=== PATIENT | female | born 1970 | race Caucasian/White ===

== ENCOUNTER 2016-08-13 12:15 | Emergency (ER) | payer OTHER ==
[~2016-08-13] VITALS: Ht 170.2 cm; Wt 77.5 kg
[~2016-08-13 12:15] MED LIST: HYDR10TA16 PO; Z.0.NO CURRENT MEDS
[2016-08-13 12:25] VITALS: BP 175/120; PULSE 81; RESP 16; TEMP 98; O2SAT 97
[2016-08-13] MEDS ORDERED: LORazepam 2 MG/ML VIAL IV PUSH ONE (13:30)
[2016-08-13] MEDS ORDERED: SODIUM CHLORIDE 0.9% FLUSH 10 ML FLUSH IVF PRN (13:30)
[2016-08-13 13:46] VITALS: O2SAT 98
[2016-08-13 13:56] LABS: AUTOMATED NEUTROPHIL # 6.4 TH/MM3 (1.8-7.7); BASOPHIL % 0.3 % (0.0-2.0); EOSINOPHIL # 0.2 TH/MM3 (0-0.4); EOSINOPHIL % 2.4 % (0.0-4.0); HEMATOCRIT 43.7 % (35.0-46.0); HEMO FLAGS DIFF FINAL; LYMPH % 11.7 % (9.0-44.0); LYMPHOCYTE # 0.9 TH/MM3 (1.0-4.8); MEAN CELL VOLUME 90.2 FL (80.0-100.0); MEAN CORPUSCULAR HEMOGLOBIN 30.6 PG (27.0-34.0); MONO % 4.3 % (0.0-8.0); NEUT % 81.3 % (16.0-70.0); PLATELET COUNT 172 TH/MM3 (150-450); RED BLOOD COUNT 4.84 MIL/MM3 (4.00-5.30); RED CELL DISTRIBUTION WIDTH 12.1 % (11.6-17.2); WHITE BLOOD COUNT 7.8 TH/MM3 (4.0-11.0)
[2016-08-13 14:03] LABS: CHLORIDE 106 MEQ/L (98-107); SODIUM (NA) 140 MEQ/L (136-145)
[2016-08-13 14:06] LABS: ANION GAP 9 MEQ/L (5-15); BICARBONATE 24.9 MEQ/L (21.0-32.0); MAGNESIUM 2.1 MG/DL (1.5-2.5)
[2016-08-13 14:07] LABS: BLOOD UREA NITROGEN 8 MG/DL (7-18)
[2016-08-13 14:10] LABS: ALT (GPT) 18 U/L (10-53); AST (GOT) 8 U/L (15-37); GLOMERULAR FILTRATION RATE 101 ML/MIN (>89)
[2016-08-13 14:11] LABS: TOTAL BILIRUBIN ADULT 0.7 MG/DL (0.2-1.0)
--- NOTE | 2016-08-13 14:11 | RADHPO ---
EXAM DATE/TIME: 08/13/2016 13:58 [facility] COMPARISON: No previous studies available for comparison. INDICATIONS : Heart Palpitations MEDICAL HISTORY : Carcinoma, breast. SURGICAL HISTORY : None. ENCOUNTER: Initial ACUITY: 1 week PAIN SCORE: 0/10 LOCATION: Bilateral chest FINDINGS: A single view of the chest demonstrates the lungs to be symmetrically aerated without evidence of mas s, infiltrate or effusion. The cardiomediastinal contours are unremarkable. Osseous structures are intact. CONCLUSION: No acute disease. Abdoul Hickey MD on August 13, 2016 at 14:09 Board Certified Radiologist. This report was verified electronically.
[2016-08-13 14:12] LABS: ALKALINE PHOSPHATASE 81 U/L (45-117)
[2016-08-13 14:17] LABS: CREATINE KINASE 53 U/L (26-192)
[2016-08-13 14:50] VITALS: BP 149/90; PULSE 87; RESP 18; O2SAT 100
--- NOTE | 2016-08-13 14:58 | RADHPO ---
EXAM DATE/TIME: 08/13/2016 14:19 [facility] COMPARISON: No previous studies available for comparison. INDICATIONS : Dizziness, facial and bilateral extremities numbness RADIATION DOSE: 65.17 CTDIvol (mGy) MEDICAL HISTORY : Hypertension. Carcinoma, breast. SURGICAL HISTORY : Mastectomy, bilateral. ENCOUNTER: Initial ACUITY: 1 week PAIN SCALE: 3/10 LOCATION: cranial TECHNIQUE: Multiple contiguous axial images were obtained of the head. Using automated exposure control and adj ustment of the mA and/or kV according to patient size, radiation dose was kept as low as reasonably a chievable to obtain optimal diagnostic quality images. FINDINGS: CEREBRUM: The ventricles are normal for age. No evidence of midline shift, mass lesion, hemorrhage or acute in farction. No extra-axial fluid collections are seen. POSTERIOR FOSSA: The cerebellum and brainstem are intact. The 4th ventricle is midline. The cerebellopontine angle i s unremarkable. EXTRACRANIAL: The visualized portion of the orbits is intact. SKULL: The calvaria is intact. No evidence of skull fracture. CONCLUSION: Normal examination. Abdoul Hickey MD on August 13, 2016 at 14:56 Board Certified Radiologist. This report was verified electronically.
--- NOTE | 2016-08-13 15:03 | PD ---
HPI . Numbness and tingling Chief Complaint: Numbness/Tingling Time Seen by Provider: 13:23 Travel History International Travel<30 days: No Contact w/Intl Traveler<30days: No Traveled to known affect area: No History of Present Illness HPI Patient presents with about a one-week history of numbness and tingling. She states that she has diffuse numbness and tingling. She has been seen by her primary care provider and diagnosed with hypertension. Medications were started. Also has an appointment to see a neurologist tomorrow. She states that she had a very rough night last night so presented to us for treatment today. She states that she had a rough night in that she was unable to sleep due to the diffuse numbness and tingling. She is also complaining with head and neck pain. She has noted no exacerbating factors. Symptoms have been unrelieved by initiation of an antihypertensive. Symptoms have been getting progressively worse. PFSH Past Medical History Blood Disorders: No Cancer: Yes Cardiovascular Problems: Yes (htn on meds recent dx ) Chemotherapy: Yes (02/05) Diminished Hearing: No Endocrine: No Genitourinary: No Immune Disorder: No Musculoskeletal: No Neurologic: No Psychiatric: No Reproductive: Yes (FIBROID) Respiratory: No Radiation Therapy: Yes (06/09) Tetanus Vaccination: < 5 Years Influenza Vaccination: No ?: Not Past Surgical History Abdominal Surgery: Yes (09/22/07--FATTY REPLACEMNT TAKEN FROM [facility], FOR L.BREAST RE RECONSTRUCTION) AICD: No Section: Yes Hysterectomy: Yes Joint Replacement: No Pacemaker: No Thoracic Surgery: Yes (DEC 2006--DOUBLE BREAST MASTECTOMY,CA OF L.BREAST) Other Surgery: Yes (APR 11--BILATERAL BREAST RECONSTRUCTION, 09/22/07-RE RECONSTRUCTION L.BREAST) Social History Alcohol Use: No Tobacco Use: No Substance Use: No Allergies-Medications (Allergen,Severity, Reaction): Coded Allergies: No Known Allergies (Verified , 08/13/16) Reported Meds & Prescriptions Reported Meds & Active Scripts Active No Active Prescriptions or Reported Medications Review of Systems Except as stated in HPI: all other systems reviewed are Neg General / Constitutional: No: Fever, Chills Eyes: No: Blurred Vision HENT: Positive: Headaches, Neck Pain Cardiovascular: No: Chest Pain or Discomfort Respiratory: No: Shortness of Breath Gastrointestinal: No: Nausea, Vomiting, Diarrhea Neurologic: Positive: Headache, Paresthesia Physical Exam Narrative GENERAL: This is a healthy-appearing woman who is in no acute distress. SKIN: Warm and dry. HEAD: Atraumatic. Normocephalic. EYES: Pupils equal and round. Extraocular movements are intact. ENT: No nasal bleeding or discharge. Mucous membranes pink and moist. NECK: Trachea midline. Neck is supple. CARDIOVASCULAR: Regular rate and rhythm. Heart sounds are normal. RESPIRATORY: No accessory muscle use. Lungs are clear with full air movement throughout. GASTROINTESTINAL: Abdomen soft, non-tender, nondistended. MUSCULOSKELETAL: No obvious deformities. No edema. NEUROLOGICAL: Awake and alert. No obvious cranial nerve deficits. Motor grossly within normal limits. Normal speech. Ibzcuo-leqh-sgeevj exam is intact bilaterally PSYCHIATRIC: Appropriate mood and affect; insight and judgment normal. Data Data Last Documented VS Vital Signs Date Time Temp Pulse Resp B/P Pulse Ox O2 Delivery O2 Flow Rate FiO2 08/13/16 14:50 87 18 149/90 100 Room Air 08/13/16 12:25 98.0 Orders Electrocardiogram (08/13/16 13:23) Ed Urine Pregnancytest Poc (08/13/16 13:23) Complete Blood Count With Diff (08/13/16 13:23) Comprehensive Metabolic Panel (08/13/16 13:23) Magnesium (Mg) (08/13/16 13:23) Ckmb (Isoenzyme) Profile (08/13/16 13:23) Troponin I (08/13/16 13:23) Chest, Single Ap (08/13/16 13:23) Ct Brain W/O Iv Contrast(Rout) (08/13/16 13:23) Ecg Monitoring (08/13/16 13:23) Iv Access Insert/Monitor (08/13/16 13:23) Oximetry (08/13/16 13:23) Sodium Chloride 0.9% Flush (Ns Flush) (08/13/16 13:30) Lorazepam Inj (Ativan Inj) (08/13/16 13:30) Labs Laboratory Tests Test 08/13/16 13:45 White Blood Count 7.8 TH/MM3 Red Blood Count 4.84 MIL/MM3 Hemoglobin 14.8 GM/DL Hematocrit 43.7 % Mean Corpuscular Volume 90.2 FL Mean Corpuscular Hemoglobin 30.6 PG Mean Corpuscular Hemoglobin 34.0 % Concent Red Cell Distribution Width 12.1 % Platelet Count 172 TH/MM3 Mean Platelet Volume 6.8 FL Neutrophils (%) (Auto) 81.3 % Lymphocytes (%) (Auto) 11.7 % Monocytes (%) (Auto) 4.3 % Eosinophils (%) (Auto) 2.4 % Basophils (%) (Auto) 0.3 % Neutrophils # (Auto) 6.4 TH/MM3 Lymphocytes # (Auto) 0.9 TH/MM3 Monocytes # (Auto) 0.3 TH/MM3 Eosinophils # (Auto) 0.2 TH/MM3 Basophils # (Auto) 0.0 TH/MM3 CBC Comment DIFF FINAL Differential Comment Sodium Level 140 MEQ/L Potassium Level 4.0 MEQ/L Chloride Level 106 MEQ/L Carbon Dioxide Level 24.9 MEQ/L Anion Gap 9 MEQ/L Blood Urea Nitrogen 8 MG/DL Creatinine 0.63 MG/DL Estimat Glomerular Filtration 101 ML/MIN Rate Random Glucose 87 MG/DL Calcium Level 8.5 MG/DL Magnesium Level 2.1 MG/DL Total Bilirubin 0.7 MG/DL Aspartate Amino Transf 8 U/L (AST/SGOT) Alanine Aminotransferase 18 U/L (ALT/SGPT) Alkaline Phosphatase 81 U/L Total Creatine Kinase 53 U/L Troponin I LESS THAN 0.02 NG/ML Total Protein 7.1 GM/DL Albumin 3.9 GM/DL [facility] Medical Decision Making Medical Screen Exam Complete: Yes Emergency Medical Condition: Yes Interpretation(s) EKG shows a sinus rhythm with no ST segment elevation or depression. She does have LVH area Differential Diagnosis My differential diagnosis of paresthesias includes but is not limited to anxiety , radiculopathy, peripheral neuropathy, peripheral vascular disease, compartment syndrome Narrative Course Patient presents for evaluation of paresthesias which have been present for a week. She has been followed see a neurologist tomorrow. CBC & BMP Diagram 08/13/16 13:45 LFTs are normal. Cardiac enzymes are negative. Last Impressions Chest X-Ray 08/13/16 1323 Signed Impressions: Service Date/Time: Saturday, August 13, 2016 13:58 - CONCLUSION: No acute disease. Abdoul Hickey MD Chest x-ray was independently viewed by me. CT CONCLUSION: Normal examination. No etiology for this patient's paresthesias have been found. Diagnosis Primary Impression: Paresthesias Patient Instructions: General Instructions, Paresthesia (ED) Additional Instructions: Keep your appointment with the neurologist tomorrow Scripts No Active Prescriptions or Reported Meds Disposition: 01 DISCHARGE HOME Condition: Stable Eden Bain MD Aug 13, 2016 15:03
--- NOTE | 2016-08-14 11:48 | EKG ---
Date Performed: 08/13/2016 Time Performed: 13:30:50 PTAGE: 45 years EKG: Sinus rhythm Leftward axis Left ventricular hypertrophy by voltage only Abnormal ECG PREVIOUS TRACING : 01/16/2002 15.05 DOCTOR: Mich Bermudez Interpretating Date/Time 08/14/2016 11:42:43
[2016-08-27] MEDS ORDERED: LISI-519 PO (08:31)
[2016-08-27] MEDS ORDERED: METO25TA3 PO (08:31)
[2016-08-27] MEDS ORDERED: LYRI75CA PO (08:31)
[2016-08-27] MEDS ORDERED: BACT800T5 PO (08:31)
[2016-08-27] MEDS ORDERED: Amitriptyline PO (08:31)
[2016-08-27] MEDS ORDERED: DOCU1CAP39 PO (08:31)
== END 2016-08-13 15:19 | disposition home or self-care (01) ==
LOC: PHED 12:15
DX: R20.9 Unspecified disturbances of skin sensation (principal); I10 Essential (primary) hypertension; R94.31 Abnormal electrocardiogram [ECG] [EKG]
CPT/HCPCS: 70450; 71010; 80053; 82550; 83735; 84484; 84703; 85025; 93005; 96374; 99284; J2060

== ENCOUNTER 2016-08-16 16:09 | Inpatient (IN) | payer OTHER ==
[2016-08-16 16:28] VITALS: BP 169/99; PULSE 88; RESP 20; TEMP 98.6; O2SAT 98
--- NOTE | 2016-08-16 17:02 | PD ---
Physical Exam Time Seen by Provider: 16:56 Narrative 45yo F unable to ambulate. No leg strength. Started 10 days ago with worsening. Seen in [facility] 2-3 days ago and told she had anxiety. Saw neurologist 2 days ago. Has MRI tomorrow of the spine, neck, brain. Hx of breast CA with double mastectomy 10 years ago. Neck and jaw pain. Difficulty swallowing. Denies fever, vomiting. No appetite. VSS. Patient seen in triage. Awaiting bed placement. Data Data Last Documented VS Vital Signs Date Time Temp Pulse Resp B/P Pulse Ox O2 Delivery O2 Flow Rate FiO2 08/16/16 16:28 98.6 88 20 169/99 98 Room Air MDM Supervised Visit with CRISTIN: No Scripts No Active Prescriptions or Reported Meds Renee Wang Aug 16, 2016 17:02
[2016-08-16] MEDS ORDERED: LISI10TA3 PO (22:11)
[2016-08-16] MEDS ORDERED: AMBI10TA PO (22:11)
[2016-08-16] MEDS ORDERED: METO25TA3 PO (22:11)
[2016-08-16] MEDS ORDERED: IBUP800T23 PO (22:11)
[2016-08-16] MEDS ORDERED: SODIUM CHLOR 0.9% 1000 ML INJ 1,000 ML IV SCH (22:34)
[2016-08-16 22:45] VITALS: BP 174/80; PULSE 80; RESP 14; O2SAT 97
--- NOTE | 2016-08-16 22:54 | RADRPT ---
EXAM DATE/TIME: 08/16/2016 22:46 [facility] COMPARISON: CHEST SINGLE AP, August 13, 2016, 13:58. INDICATIONS : Syncope MEDICAL HISTORY : Carcinoma, breast. SURGICAL HISTORY : None. ENCOUNTER: Initial ACUITY: 2 weeks PAIN SCORE: 0/10 LOCATION: Bilateral chest FINDINGS: A single view of the chest demonstrates the lungs to be symmetrically aerated without evidence of mas s, infiltrate or effusion. The cardiomediastinal contours are unremarkable. Osseous structures are intact. Surgical clips are again noted in the left axilla. CONCLUSION: No acute disease. Coy Delatorre MD on August 16, 2016 at 22:52 Board Certified Radiologist. This report was verified electronically.
[2016-08-16 23:24] LABS: AUTOMATED NEUTROPHIL # 4.1 TH/MM3 (1.8-7.7); BASOPHIL % 0.6 % (0.0-2.0); EOSINOPHIL # 0.1 TH/MM3 (0-0.4); EOSINOPHIL % 1.7 % (0.0-4.0); HEMATOCRIT 45.2 % (35.0-46.0); HEMO FLAGS DIFF FINAL; LYMPH % 29.7 % (9.0-44.0); LYMPHOCYTE # 2.1 TH/MM3 (1.0-4.8); MEAN CELL VOLUME 90.1 FL (80.0-100.0); MEAN CORPUSCULAR HEMOGLOBIN 31.8 PG (27.0-34.0); MEAN CORPUSCULAR HGB CONC 35.3 % (32.0-36.0); MONO % 9.3 % (0.0-8.0); NEUT % 58.7 % (16.0-70.0); PLATELET COUNT 205 TH/MM3 (150-450); RED BLOOD COUNT 5.02 MIL/MM3 (4.00-5.30); RED CELL DISTRIBUTION WIDTH 12.7 % (11.6-17.2)
[2016-08-16 23:32] LABS: APTT (PATIENT) 26.1 SEC (24.3-30.1); PROTHROMBIN TIME - PATIENT 10.5 SEC (9.8-11.6)
[2016-08-16 23:41] LABS: BACTERIA, URINE RARE /hpf; BLOOD, URINE MOD (NEG); GLUCOSE,URINE NEG (NEG); HYALINE CAST, URINE 23 /lpf (RARE); KETONE, URINE NEG (NEG); MUCUS URINE MANY /lpf (OCC); NITRITE,URINE NEG (NEG); PH, URINE 5.5 (5.0-8.5); RENAL EPITHELIAL CELLS <1 /hpf; SQUAMOUS EPITHELIAL CELL URINE 3 /hpf (0-5); URINE COLOR YELLOW (YELLW/STRAW)
[2016-08-16 23:43] LABS: COMMENT (UR) CATH-CULTURE IND; CULTURE IF INDICATED CATH CULTURE IND
[2016-08-16 23:45] LABS: ALT (GPT) 18 U/L (10-53); ANION GAP 10 MEQ/L (5-15); AST (GOT) 8 U/L (15-37); BICARBONATE 26.8 MEQ/L (21.0-32.0); BLOOD UREA NITROGEN 11 MG/DL (7-18); CHLORIDE 102 MEQ/L (98-107); GLOMERULAR FILTRATION RATE 99 ML/MIN (>89); POTASSIUM 4.1 MEQ/L (3.5-5.1); SODIUM (NA) 139 MEQ/L (136-145)
[2016-08-16 23:46] LABS: AMPHETAMINE, URINE NEG (NEG); BARBITURATES, URINE NEG (NEG); COCAINE, URINE NEG (NEG)
[2016-08-16 23:56] LABS: ALKALINE PHOSPHATASE 86 U/L (45-117); TOTAL BILIRUBIN ADULT 0.6 MG/DL (0.2-1.0)
[2016-08-17] VITALS (15 sets, daily range): BP systolic 142–173; BP diastolic 79–99; PULSE 75–94; RESP 16–20; TEMP 96.2–98.6; O2SAT 96–99
[2016-08-17] LABS: ACETAMINOPHEN LESS THAN 2.0 MCG/ML (10.0-30.0)
--- NOTE | 2016-08-17 01:16 | PD ---
HPI Chief Complaint: Numbness/Tingling Time Seen by Provider: 22:26 Travel History International Travel<30 days: No Contact w/Intl Traveler<30days: No Traveled to known affect area: No History of Present Illness HPI Patient 45-year-old female presents emergency department for evaluation and numbness and tingling in the lower extremities as well as an inability to emulate. Patient states that the symptoms first started approximately 2 weeks ago and gradually worsening. She states initially started with numbness and tingling in bilateral great toes ultimately coming and having numbness and tingling up her ankles and bilateral hands. She was seen here several days ago and had a CAT scan of her head as well as this question negative and discharged. She is also seen a neurologist Dr. Negron during that time who performed an EMG of her lower extremities which is negative. She's also been tested for Lyme's disease which is still pending. Patient states that for the past 24 hours she's been unable to bear weight in her lower extremity secondary to weakness. She called 911 today to be evaluated. Chest patient been having some trouble swallowing solid food and has been on a liquid diet recently. Denies any fever headaches chest pain shortness breath abdominal pain nausea vomiting diarrhea. PFSH Past Medical History Blood Disorders: No Cancer: Yes (breast) Cardiovascular Problems: Yes (htn on meds recent dx ) Chemotherapy: Yes (02/05) Diminished Hearing: No Endocrine: No Genitourinary: No Immune Disorder: No Musculoskeletal: No Neurologic: No Psychiatric: No Reproductive: Yes (FIBROID) Respiratory: No Radiation Therapy: Yes (06/09) Influenza Vaccination: No ?: Not Past Surgical History Abdominal Surgery: Yes (09/22/07--FATTY REPLACEMNT TAKEN FROM [facility], FOR L.BREAST RE RECONSTRUCTION) AICD: No Section: Yes Hysterectomy: Yes Joint Replacement: No Pacemaker: No Thoracic Surgery: Yes (DEC 2006--DOUBLE BREAST MASTECTOMY,CA OF L.BREAST) Other Surgery: Yes (APR 11--BILATERAL BREAST RECONSTRUCTION, 09/22/07-RE RECONSTRUCTION L.BREAST) Social History Alcohol Use: Yes (occ) Tobacco Use: No Substance Use: No Allergies-Medications (Allergen,Severity, Reaction): Coded Allergies: No Known Allergies (Verified , 08/16/16) Reported Meds & Prescriptions Reported Meds & Active Scripts Active Reported Ibuprofen 800 Mg Tab 800 Mg PO Q6HR PRN Metoprolol Tartrate 25 Mg Tab 25 Mg PO BID Lisinopril 10 Mg Tab 10 Mg PO DAILY Ambien (Zolpidem Tartrate) 10 Mg Tab 10 Mg PO HS PRN Review of Systems Except as stated in HPI: all other systems reviewed are Neg Physical Exam Narrative GENERAL: Well-developed well-nourished no apparent distress. SKIN: Focused skin assessment warm/dry. HEAD: Atraumatic. Normocephalic. EYES: Pupils equal and round. No scleral icterus. No injection or drainage. ENT: No nasal bleeding or discharge. Mucous membranes pink and moist. NECK: Trachea midline. No JVD. CARDIOVASCULAR: Regular rate and rhythm. No murmur appreciated. RESPIRATORY: No accessory muscle use. Clear to auscultation. Breath sounds equal bilaterally. GASTROINTESTINAL: Abdomen soft, non-tender, nondistended. Hepatic and splenic margins not palpable. MUSCULOSKELETAL: No obvious deformities. No clubbing. No cyanosis. No edema. NEUROLOGICAL: Awake and alert. Renal nerves II through XII are grossly intact and nonfocal, 5 out of 5 strength in bilateral upper extremity's, 4-5 strength in plantar flexion of bilateral lower extremities. There is some subjective numbness and tingling of the lower extremity's. DTRs are not able to be elicited patellar site, there is no clonus at the plantar reflex. PSYCHIATRIC: Appropriate mood and affect; insight and judgment normal. Data Data Last Documented VS Vital Signs Date Time Temp Pulse Resp B/P Pulse Ox O2 Delivery O2 Flow Rate FiO2 08/17/16 00:25 78 16 170/84 98 Room Air 08/16/16 16:28 98.6 Orders Electrocardiogram (08/16/16 22:34) Complete Blood Count With Diff (08/16/16 22:34) Comprehensive Metabolic Panel (08/16/16 22:34) Prothrombin Time / Inr (Pt) (08/16/16 22:34) Act Partial Throm Time (Ptt) (08/16/16 22:34) Thyroid Stimulating Hormone (08/16/16 22:34) Urinalysis - C+S If Indicated (08/16/16 22:34) Chest, Single Ap (08/16/16 22:34) Blood Glucose (08/16/16 22:34) Ecg Monitoring (08/16/16 22:34) Iv Access Insert/Monitor (08/16/16 22:34) Oximetry (08/16/16 22:34) Sodium Chloride 0.9% Flush (Ns Flush) (08/16/16 22:45) Sodium Chlor 0.9% 1000 Ml Inj (Ns 1000 M (08/16/16 22:34) Drug Screen, Random Urine (08/16/16 22:34) Alcohol (Ethanol) (08/16/16 22:34) Salicylates (Aspirin) (08/16/16 22:34) Tylenol (Acetaminophen) (08/16/16 22:34) Ed Urine Pregnancytest Poc (08/16/16 22:34) Urine Culture (08/16/16 23:30) Admit Order (Ed Use Only) (08/17/16 ) Labs Laboratory Tests Test 08/16/16 08/16/16 23:10 23:30 White Blood Count 7.0 TH/MM3 Red Blood Count 5.02 MIL/MM3 Hemoglobin 16.0 GM/DL Hematocrit 45.2 % Mean Corpuscular Volume 90.1 FL Mean Corpuscular Hemoglobin 31.8 PG Mean Corpuscular Hemoglobin 35.3 % Concent Red Cell Distribution Width 12.7 % Platelet Count 205 TH/MM3 Mean Platelet Volume 7.1 FL Neutrophils (%) (Auto) 58.7 % Lymphocytes (%) (Auto) 29.7 % Monocytes (%) (Auto) 9.3 % Eosinophils (%) (Auto) 1.7 % Basophils (%) (Auto) 0.6 % Neutrophils # (Auto) 4.1 TH/MM3 Lymphocytes # (Auto) 2.1 TH/MM3 Monocytes # (Auto) 0.7 TH/MM3 Eosinophils # (Auto) 0.1 TH/MM3 Basophils # (Auto) 0.0 TH/MM3 CBC Comment DIFF FINAL Differential Comment Prothrombin Time 10.5 SEC Prothromb Time International 1.0 RATIO Ratio Activated Partial 26.1 SEC Thromboplast Time Salicylates Level LESS THAN 1.7 MG/DL Sodium Level 139 MEQ/L Potassium Level 4.1 MEQ/L Chloride Level 102 MEQ/L Carbon Dioxide Level 26.8 MEQ/L Anion Gap 10 MEQ/L Blood Urea Nitrogen 11 MG/DL Creatinine 0.64 MG/DL Estimat Glomerular Filtration 99 ML/MIN Rate Random Glucose 99 MG/DL Calcium Level 10.5 MG/DL Total Bilirubin 0.6 MG/DL Aspartate Amino Transf 8 U/L (AST/SGOT) Alanine Aminotransferase 18 U/L (ALT/SGPT) Alkaline Phosphatase 86 U/L Total Protein 7.8 GM/DL Albumin 4.1 GM/DL Thyroid Stimulating Hormone 3.060 uIU/ML 3rd Gen Acetaminophen Level LESS THAN 2.0 MCG/ML Ethyl Alcohol Level LESS THAN 3 MG/DL Urine Color YELLOW Urine Turbidity HAZY Urine pH 5.5 Urine Specific Commerce 1.028 Urine Protein TRACE mg/dL Urine Glucose (UA) NEG mg/dL Urine Ketones NEG mg/dL Urine Occult Blood MOD Urine Nitrite NEG Urine Bilirubin NEG Urine Urobilinogen LESS THAN 2.0 MG/DL Urine Leukocyte Esterase NEG Urine RBC 9 /hpf Urine WBC 6 /hpf Urine Squamous Epithelial 3 /hpf Cells Urine Renal Epithelial Cells <1 /hpf Urine Bacteria RARE /hpf Urine Hyaline Casts 23 /lpf Urine Mucus MANY /lpf Microscopic Urinalysis Comment CATH-CULTURE IND Urine Opiates Screen NEG Urine Barbiturates Screen NEG Urine Amphetamines Screen NEG Urine Benzodiazepines Screen NEG Urine Cocaine Screen NEG Urine Cannabinoids Screen NEG MDM Medical Decision Making Medical Screen Exam Complete: Yes Emergency Medical Condition: Yes Differential Diagnosis Neuropathy, Guillain-Olwe, MS, stroke unlikely, electrolyte abnormality. Narrative Course Patient roomed in the emergency department, CT head was reviewed from 3 days ago which was negative. Basic labs including CBC and CMP are negative. After discussing the risks benefits competitions and alternatives patients agreed to proceed with lumbar puncture. Patient discussed with Dr. Eric Orlando for admission to Dr. Rivas. Upon return of the patient's lumbar puncture showing elevated protein concern for Guillain-Lowe remains. She continues to protect her airway at 02 . She was discussed with Dr. Tinajero and O2 30 recommends adding the remainder of the MRI of CT and L-spine. He agrees with MRI of the brain with and without contrast. No indication for IVIG at this time. Consultation is been placed. Patient will be moved age pod and will be under [facility]. Diagnosis Primary Impression: Lower extremity weakness Qualified Code: R29.898 - Weakness of both lower extremities Additional Impression: Inability to bear weight Admitting Information Admitting Physician Requests: Observation Condition: Stable Olvin Rodgers MD Aug 17, 2016 01:16
[2016-08-17 01:55] LABS: GROSS BLOOD TUBE #1 0 (0); GROSS BLOOD TUBE #2 0 (0); SUPERNATE COLOR TUBE #1 CLEAR (CLEAR); SUPERNATE COLOR TUBE #2 CLEAR (CLEAR); VOLUME TUBE # 1 1.1 ML; VOLUME TUBE # 2 1.2 ML
[2016-08-17 01:56] LABS: GROSS BLOOD TUBE #3 0 (0); GROSS BLOOD TUBE #4 0 (0); SUPERNATE COLOR TUBE #3 CLEAR (CLEAR); SUPERNATE COLOR TUBE #4 CLEAR (CLEAR); VOLUME TUBE # 3 1.3 ML; VOLUME TUBE # 4 2.9 ML; WBC TUBE #4 4 /MM3 (0-10)
[2016-08-17 02:22] LABS: CSF LYMPHOCYTES 100 %; CSF NEUTROPHILS 0 %
[2016-08-17] MEDS ORDERED: ONDANSETRON HCL 4 MG/2 ML VIAL IV PUSH ONE (02:30)
[2016-08-17] MEDS ORDERED: LORazepam 1 MG TAB PO SCH (03:45)
[2016-08-17] MEDS ORDERED: CALCIUM CARBONATE 500 MG CHEWABLE TAB PO PRN (03:45)
--- NOTE | 2016-08-17 06:16 | RADRPT ---
EXAM DATE/TIME: 08/17/2016 04:47 [facility] COMPARISON: No previous studies available for comparison. INDICATIONS : Inability to ambulate. CONTRAST: 15 cc Omniscan (gadodiamide) IV MEDICAL HISTORY : Hypertension. Carcinoma, breast. SURGICAL HISTORY : Mastectomy, bilateral. Hysterectomy. Breast implants. ENCOUNTER: Initial ACUITY: 4-6 days PAIN SCORE: 0/10 LOCATION: [facility] TECHNIQUE: Multiplanar multisequence MRI of the thoracic spine was performed. FINDINGS: VERTEBRA: Normal vertebral body height. Homogeneous marrow signal. Mild primarily bony degenerative changes ar e seen involving the thoracic spine. No compression fractures are demonstrated. ALIGNMENT: Normal. CORD: Normal position and configuration. POST CONTRAST: No abnormal areas of contrast enhancement seen. T1-T2: Normal. T2-T3: The thecal sac has a normal diameter. No evidence of disc bulge or protrusion. T3-T4: The thecal sac has a normal diameter. No evidence of disc bulge or protrusion. T4-T5: The thecal sac has a normal diameter. No evidence of disc bulge or protrusion. T5-T6: The thecal sac has a normal diameter. No evidence of disc bulge or protrusion. T6-T7: The thecal sac has a normal diameter. No evidence of disc bulge or protrusion. T7-T8: The thecal sac has a normal diameter. No evidence of disc bulge or protrusion. T8-T9: The thecal sac has a normal diameter. No evidence of disc bulge or protrusion. T9-T10: Focal right paracentral bulging. Foramina are patent. T10-T11: The thecal sac has a normal diameter. No evidence of disc bulge or protrusion. T11-T12: The thecal sac has a normal diameter. No evidence of disc bulge or protrusion. T12-L1: The thecal sac has a normal diameter. No evidence of disc bulge or protrusion. CONCLUSION: 1. Focal right paracentral bulging at T9-T10. 2. Mild primarily bony degenerative changes of the thoracic spine. Catrachito Leal MD on August 17, 2016 at 6:11 Board Certified Radiologist. This report was verified electronically.
[2016-08-17] MEDS ORDERED: GADODIAMIDE PF 287 MG/ML 5 ML VIAL (for RAD MRI) IV ONE (06:30)
--- NOTE | 2016-08-17 06:46 | RADRPT ---
EXAM DATE/TIME: 08/17/2016 04:47 [facility] COMPARISON: No previous studies available for comparison. INDICATIONS : Inability to ambulate. CONTRAST: 15 cc Omniscan (gadodiamide) IV MEDICAL HISTORY : Hypertension. Carcinoma, breast. SURGICAL HISTORY : Mastectomy, bilateral. Hysterectomy. Breast implant. ENCOUNTER: Initial ACUITY: 4-6 days PAIN SCORE: 0/10 LOCATION: [facility] TECHNIQUE: Multiplanar, multisequence MRI examination of the cervical spine was performed. FINDINGS: VERTEBRAE: Normal vertebral body height. Homogeneous marrow signal. There are primary bony degenerative change is present. There is disc space narrowing at C4-5 and C5-6. No compression fractures are demonstrated . ALIGNMENT: No evidence of subluxation. CORD: Normal configuration and signal. POST FOSSA: The cerebellar tonsils are normal in position. POST-CONTRAST: No abnormal areas of enhancement are seen. C2-C3: The thecal sac has a normal configuration. There is no evidence of disc herniation or spinal canal stenosis. The neural foramina are patent bilaterally. C3-C4: The thecal sac has a normal configuration. There is no evidence of disc herniation or spinal canal s tenosis. The neural foramina are patent bilaterally. C4-C5: Moderate diffuse broad-based bulging with mild narrowing of the neural foramina bilaterally. This cau sing some mild to moderate spinal canal stenosis. C5-C6: There is broad-based bulging and left lateral bulging/protrusion. There is mild narrowing of the neur al foramina bilaterally, left greater than right.. C6-C7: Mild broad-based bulging. The neural foramina appear patent. C7-T1: The thecal sac has a normal configuration. There is no evidence of disc herniation or spinal canal s tenosis. The neural foramina are patent bilaterally. CONCLUSION: 1. There is broad-based bulging and left lateral bulging/protrusion at C5-6. 2. Moderate diffuse broad-based bulging at C4-5. 3. Mild broad-based bulging at C6-7 4. Primary bony degenerative changes of the cervical spine with disc space narrowing at C4-5 and C5-6 . Catrachito Leal MD on August 17, 2016 at 6:39 Board Certified Radiologist. This report was verified electronically.
--- NOTE | 2016-08-17 06:49 | RADRPT ---
EXAM DATE/TIME: 08/17/2016 04:47 [facility] COMPARISON: No previous studies available for comparison. INDICATIONS : Inability to ambulate. CONTRAST: 15 cc Omniscan (gadodiamide) IV MEDICAL HISTORY : Carcinoma, breast. Hypertension. SURGICAL HISTORY : Mastectomy, bilateral. Hysterectomy. Breast implants ENCOUNTER: Initial ACUITY: 4-6 days PAIN SCORE: 0/10 LOCATION: Paraspinal TECHNIQUE: Multiplanar multisequence MRI of the lumbar spine was performed with and without contrast. FINDINGS: The most caudal appearing lumbar vertebra is numbered as L5. VERTEBRAE: Homogeneous signal. Normal alignment. There is disc dehydration L5-S1. There is a hemangioma in the body of L2. CONUS: Normal level and configuration. POST CONTRAST: No abnormal areas of contrast enhancement are seen. T12-L1: The thecal sac has a normal diameter. No evidence of disc bulge or protrusion. The neural foramina are patent bilaterally. L1-L2: The thecal sac has a normal diameter. No evidence of disc bulge or protrusion. The neural foramina are patent bilaterally. L2-L3: The thecal sac has a normal diameter. No evidence of disc bulge or protrusion. The neural foramina are patent bilaterally. Bilateral facet arthritis. L3-L4: Focal mild central bulging. The neural foramina are patent bilaterally. Bilateral facet arthritis. L4-L5: The thecal sac has a normal diameter. No evidence of disc bulge or protrusion. The neural foramina are patent bilaterally. Bilateral facet arthritis. L5-S1: The thecal sac has a normal diameter. No evidence of disc bulge or protrusion. The neural foramina are patent bilaterally. Bilateral facet arthritis. CONCLUSION: 1. Focal mild central bulging L3-4. 2. Disc dehydration with disc space narrowing at L5-S1 3. Bilateral facet arthritis at multiple levels. Catrachito Leal MD on August 17, 2016 at 6:44 Board Certified Radiologist. This report was verified electronically.
--- NOTE | 2016-08-17 06:51 | RADRPT ---
EXAM DATE/TIME: 08/17/2016 04:47 [facility] COMPARISON: No previous studies available for comparison. INDICATIONS : Inability to ambulate. Cephalgia. CONTRAST: 15 cc Omniscan (gadodiamide) IV MEDICAL HISTORY : Inability to ambulate SURGICAL HISTORY : Mastectomy, bilateral. Hysterectomy. Breast implants. ENCOUNTER: Initial ACUITY: 4-6 days PAIN SCORE: 5/10 LOCATION: cranial TECHNIQUE: Multiplanar, multisequence MRI of the brain was performed both prior to and following the administrat ion of paramagnetic contrast. FINDINGS: CEREBRUM: The ventricles are normal for age. No evidence of midline shift, mass lesion, hemorrhage or acute in farction. No extraaxial fluid collections are seen. The pituitary gland and suprasellar cistern are normal in configuration. WHITE MATTER: No significant signal abnormalities are seen in the white matter. A few tiny high signal spots are se en in the white matter tracks bilaterally most likely representing some ischemic demyelinization. POSTERIOR FOSSA: The cerebellum and brainstem are intact. The 4th ventricle is midline. The cerebellopontine angle is unremarkable. The cerebellar tonsils are normal in position. DIFFUSION IMAGING: No focal areas of restricted diffusion are seen. No evidence of acute infarction. EXTRACRANIAL: The visualized portions of the orbits are unremarkable. There is chronic sinus disease in the ethmoid and maxillary sinuses bilaterally. POST-CONTRAST: No abnormal areas of parenchymal or dural enhancement. No evidence of blood-brain barrier breakdown. CONCLUSION: 1. A few tiny high signal spots are seen in the white matter tracks bilaterally suggestive of some is chemic demyelinization. 2. Otherwise, unremarkable MRI of the brain. Catrachito Leal MD on August 17, 2016 at 6:47 Board Certified Radiologist. This report was verified electronically.
[2016-08-17] MEDS: METOPROLOL TARTRATE 25 MG TAB PO SCH ×2 (08:11→20:26)
[2016-08-17] MEDS: PANTOPRAZOLE SOD 20 MG DELAYED RELEASE TAB PO SCH (08:11)
[2016-08-17] MEDS: SODIUM CHLORIDE 0.9% FLUSH 10 ML FLUSH IVF PRN (08:12)
--- NOTE | 2016-08-17 08:57 | PD.CONS ---
History of Present Illness Service Neurology Consult Requested By er Reason for Consult weakness Primary Care Physician rEic Orlando MD History of Present Illness 45-year-old previously healthy female presents emergency department for evaluation and numbness and tingling in the lower extremities as well as an inability to ambulate. hx of breast cancer in remission. is active at baseline. onset: over 10 days ago. preceded by gi symptoms/?viral gastroenteritis 1 week prior Patient states that the symptoms first started approximately 2 weeks ago and gradually worsening. She states initially started with numbness and tingling in bilateral great toes ultimately coming and having numbness and tingling up her ankles up to her knees and now involvement of her hands. her neck hurts and she has paresthesias in her hands and feet. no vision loss, no ptosis. no diplopia, no dysphagia. no dyspnea. no vaccinations. She was seen here several days ago and had a CAT scan of her head as well as this question negative and discharged from er 08/13. Her pcp sent her to Dr. Jim a neurologist, who sent her to , a neurologist for EMG testing which was reportedly negative. She's also been tested for Lyme's disease which is still pending. Patient states that for the past 24 hours she's been unable to bear weight in her lower extremity secondary to weakness. Denies any fever headaches chest pain shortness breath abdominal pain nausea vomiting diarrhea. PFSH Past Medical History Blood Disorders: No Cancer: Yes (breast) Cardiovascular Problems: Yes (htn on meds recent dx ) Chemotherapy: Yes (02/05) Diminished Hearing: No Endocrine: No Genitourinary: No Immune Disorder: No Musculoskeletal: No Neurologic: No Psychiatric: No Reproductive: Yes (FIBROID) Respiratory: No Radiation Therapy: Yes (06/09) Influenza Vaccination: No ?: Not Past Surgical History Abdominal Surgery: Yes (09/22/07--FATTY REPLACEMNT TAKEN FROM ABD, FOR L.BREAST RE RECONSTRUCTION) AICD: No Section: Yes Hysterectomy: Yes Joint Replacement: No Pacemaker: No Thoracic Surgery: Yes (DEC 2006--DOUBLE BREAST MASTECTOMY,CA OF L.BREAST) Other Surgery: Yes (APR 11--BILATERAL BREAST RECONSTRUCTION, 09/22/07-RE RECONSTRUCTION L.BREAST) Social History Alcohol Use: Yes (occ) Tobacco Use: No Substance Use: No Allergies-Medications (Allergen,Severity, Reaction): Coded Allergies: No Known Allergies (Verified , 08/16/16) Reported Meds & Prescriptions Reported Meds & Active Scripts Active Reported Ibuprofen 800 Mg Tab 800 Mg PO Q6HR PRN Metoprolol Tartrate 25 Mg Tab 25 Mg PO BID Lisinopril 10 Mg Tab 10 Mg PO DAILY Ambien (Zolpidem Tartrate) 10 Mg Tab 10 Mg PO HS PRN Review of Systems Except as stated in HPI: all other systems reviewed are Neg Review of Systems All other ROS: ROS reviewed as documented in chart Past Family Social History Allergies: Coded Allergies: No Known Allergies (Verified , 08/16/16) Active Ordered Medications Current Medications Medications (Trade) Dose Ordered Sig/Levy Route Start Time Stop Time Status Last Admin (NS Flush) 2 ml UNSCH PRN IVF 08/16/16 22:45 08/17/16 08:12 (Lopressor) 25 mg Q12HR PO 08/17/16 09:00 08/17/16 08:11 (Prinivil) 5 mg DAILY PO 08/17/16 09:00 08/17/16 08:13 (Protonix) 20 mg DAILY PO 08/17/16 09:00 08/17/16 08:11 (Tums Chew) 1,000 mg Q6H PRN PO 08/17/16 03:45 08/17/16 04:05 Family History daughter with CIDP, age 11, gets ivig tx's Exam I&O / VS Vital Signs Date Time Temp Pulse Resp B/P Pulse Ox O2 Delivery O2 Flow Rate FiO2 08/17/16 07:57 97.8 84 18 171/88 97 08/17/16 04:22 98.6 90 20 169/93 98 08/17/16 03:01 97.0 88 20 158/92 97 08/17/16 01:39 82 16 164/88 99 Room Air 08/17/16 00:25 78 16 170/84 98 Room Air 08/16/16 22:45 80 14 174/80 97 Room Air 08/16/16 21:59 88 14 97 Room Air 08/16/16 16:28 98.6 88 20 169/99 98 Room Air General: Alert and Oriented, No acute distress Eye: EOMI Respiratory: Non-labored respirations Cardiology: Normal rate Neurologic: Alert, Oriented, CN II-XII intact Psychiatric: Cooperative, Appropriate mood & affect, Normal judgement, Non- suicidal Exam Comments ox 3, pleasant. eomi, face sym, ou 3-2, no ptosis, mild neck rigidity, generalized weakness 3-4/5 prox>distal, able to briefly raise legs to gravity, arms for a few seconds, able to paper twister marquise 4+/5, wrist ext 4+5, foot dorsiflexion 4/5, msr trace, no clonus, planter flexor, allodynia/mild hyperpathia in distal dital legs/arms Review/Management Diagnosis/Plan: (1) Guillain Lowe syndrome Plan: probable gbs ascending weakness, hyporeflexic, stocking glove paresthesias with antecedent viral gastroenteritis +elevated protein with nml wbc and chemistries mri brain- minimal, non-significant white matter spots spinal cord normal interestingly, daughter with CIDP and receives ivig; pt and daughter may have genetic/immune etiology recs ivig x 5 days; s/b d/w pt. pt would like to proceed p.t. 5th floor with tele gabapentin for paresthesias rehab md for repeat emg/ncv follow exam (2) Lower extremity weakness (3) Paresthesias Problem Qualifiers (1) Lower extremity weakness: Qualified Code: R29.898 - Weakness of both lower extremities Franck Lee MD Aug 17, 2016 08:56
[2016-08-17] MEDS ORDERED: LISINOPRIL 5 MG TAB PO SCH (09:00)
[2016-08-17] MEDS ORDERED: diphenhydrAMINE HCL 25 MG CAP PO SCH (09:00)
[2016-08-17] MEDS ORDERED: ACETAMINOPHEN 325 MG TAB PO SCH ×2 (09:00→10:00)
[2016-08-17] MEDS: SODIUM CHLOR 0.9% 1000 ML INJ 1,000 ML IV SCH ×2 (09:15→23:50)
--- NOTE | 2016-08-17 09:41 | EKG ---
Date Performed: 08/16/2016 Time Performed: 23:53:51 PTAGE: 45 years EKG: Sinus rhythm BORDERLINE LEFT AXIS DEVIATION VOLTAGE CRITERIA FOR LVH ABNORMAL ECG PREVIOUS TRACING : 08/13/2016 13.30 No significant change from previous tracing noted. DOCTOR: Quinton Powell Interpretating Date/Time 08/17/2016 09:40:25
[2016-08-17] MEDS ORDERED: diphenhydrAMINE HCL 50 MG/ML VIAL IV PUSH PRN (10:00)
[2016-08-17] MEDS ORDERED: EPINEPHrine HCL (1:1000) 1 MG/ML VIAL OTHER PRN (10:00)
[2016-08-17] MEDS: DEXTROSE 5% IN WATE 500 ML INJ 500 ML OTHER SCH (10:15)
[2016-08-17] MEDS: SODIUM CHLORID 0.9% 500 ML INJ 500 ML IV SCH (11:37)
[2016-08-17] MEDS: diphenhydrAMINE HCL 25 MG CAP PO SCH (11:37)
[2016-08-17] MEDS: GABAPENTIN 100 MG CAP PO SCH ×3 (11:38→18:27)
[2016-08-17] MEDS: HEPARIN SODIUM - SQ 10,000 UNITS/ML VIAL SQ SCH ×2 (11:39→20:28)
[2016-08-17 12:00] LABS: INDIRECT BILIRUBIN 0.6 MG/DL (0.0-0.8); TOTAL BILIRUBIN ADULT 0.7 MG/DL (0.2-1.0)
[2016-08-17] MEDS: IMMUNE GLOBULIN INJ 30 GM in SYRINGE/BAG 1 EA IV SCH (13:00)
--- NOTE | 2016-08-17 15:08 | HHI.HP ---
HPI Service [facility] Hospitalists Primary Care Physician Eric Orlando MD Admission Diagnosis Weakness, Inability to ambulate Chief Complaint: LE numbness Travel History International Travel<30 Days: No Contact w/Intl Traveler <30 Da: No Traveled to Known Affected Are: No History of Present Illness Patient is a pleasant 45-year-old female with history of breast cancer now in remission. Patient presented to [facility] with complaint of numbness and tingling in her lower extremities as well as inability to ambulate. The symptoms have worsened over the last 10 days. Initially patient had numbness and tingling bilaterally in her great toes. This numbness progressed to go up to the level of her ankles and then knees. Patient now complains of numbness and tingling also at her hands. Patient denies vision loss no dysphasia no difficulty with word finding. Patient reportedly had outpatient EMG testing which was negative. Patient has been tested for Lyme's disease which is pending. Present symptoms were preceded by Astra enteritis. Review of Systems Constitutional: DENIES: Diaphoretic episodes, Fatigue, Fever, Weight gain, Weight loss, Chills, Dizziness, Change in appetite, Night Sweats Endocrine: DENIES: Heat/cold intolerance, Polydipsia, Polyuria, Polyphagia Eyes: DENIES: Blurred vision, Diplopia, Eye inflammation, Eye pain, Vision loss , Photosensitivity, Double Vision Ears, nose, mouth, throat: DENIES: Tinnitus, Hearing loss, Vertigo, Nasal discharge, Oral lesions, Throat pain, Hoarseness, Ear Pain, Running Nose, Epistaxis, Sinus Pain, Toothache, Odynophagia Respiratory: DENIES: Apneas, Cough, Snoring, Wheezing, Hemoptysis, Sputum production, Shortness of breath Cardiovascular: DENIES: Chest pain, Palpitations, Syncope, Dyspnea on Exertion , PND, Lower Extremity Edema, Orthopnea, Claudication Gastrointestinal: DENIES: Abdominal pain, Black stools, Bloody stools, BRB per rectum, Constipation, Diarrhea, GERD, Nausea, Reflux, Vomiting, Difficulty Swallowing, Anorexia Genitourinary: DENIES: Urinary frequency, Urinary incontinence, Urgency, Hematuria, Dysuria, Nocturia Musculoskeletal: DENIES: Joint pain, Muscle aches, Stiffness, Joint Swelling, Back pain, Neck pain Integumentary: DENIES: Abnormal pigmentation, Pruritus, Rash, Nail changes, Breast masses, Breast skin changes, Nipple discharge Hematologic/lymphatic: DENIES: Bruising, Lymphadenopathy Immunologic/allergic: DENIES: Eczema, Urticaria Neurologic: COMPLAINS OF: Abnormal gait, Localized weakness, Paresthesias, DENIES: Headache, Seizures, Speech Problems, Tremor, Poor Balance Psychiatric: DENIES: Anxiety, Confusion, Mood changes, Depression, Hallucinations, Agitation, Suicidal Ideation, Homicidal Ideation, Delusions, History of Bipolar, History of Schizophrenia Past Family Social History Past Medical History 1) history of breast cancer, left breast - Status post chemotherapy and radiation therapy 2) hypertension 3) Past Surgical History 1) double mastectomy, December 2006 for cancer of left breast 2) bilateral breast reconstruction, September 2007 Reported Medications Reported Meds & Active Scripts Active Reported Ibuprofen 800 Mg Tab 800 Mg PO Q6HR PRN Metoprolol Tartrate 25 Mg Tab 25 Mg PO BID Lisinopril 10 Mg Tab 10 Mg PO DAILY Ambien (Zolpidem Tartrate) 10 Mg Tab 10 Mg PO HS PRN Allergies: Coded Allergies: No Known Allergies (Verified , 08/16/16) Family History Noncontributory Social History - No tobacco use - Rare alcoholic beverage - No illicit street drugs Physical Exam Vital Signs Vital Signs Date Time Temp Pulse Resp B/P Pulse Ox O2 Delivery O2 Flow Rate FiO2 08/17/16 14:26 97.5 94 16 171/85 96 08/17/16 13:53 98.6 85 16 171/99 97 08/17/16 13:21 96.2 79 18 173/91 97 08/17/16 13:08 170/80 97 08/17/16 12:00 98.2 81 18 169/99 97 08/17/16 08:00 75 08/17/16 07:57 97.8 84 18 171/88 97 08/17/16 04:22 98.6 90 20 169/93 98 08/17/16 03:01 97.0 88 20 158/92 97 08/17/16 01:39 82 16 164/88 99 Room Air 08/17/16 00:25 78 16 170/84 98 Room Air 08/16/16 22:45 80 14 174/80 97 Room Air 08/16/16 21:59 88 14 97 Room Air 08/16/16 16:28 98.6 88 20 169/99 98 Room Air Physical Exam GENERAL: This is a well-nourished, well-developed patient, in no apparent distress. SKIN: No rashes, ecchymoses or lesions. Cool and dry. HEAD: Atraumatic. Normocephalic. No temporal or scalp tenderness. EYES: Pupils equal round and reactive. Extraocular motions intact. No scleral icterus. No injection or drainage. ENT: Nose without bleeding, purulent drainage or septal hematoma. Throat without erythema, tonsillar hypertrophy or exudate. Uvula midline. Airway patent. NECK: Trachea midline. No JVD or lymphadenopathy. Supple, nontender, no meningeal signs. CARDIOVASCULAR: Regular rate and rhythm without murmurs, gallops, or rubs. RESPIRATORY: Clear to auscultation. Breath sounds equal bilaterally. No wheezes , rales, or rhonchi. GASTROINTESTINAL: Abdomen soft, non-tender, nondistended. No hepato-splenomegaly , or palpable masses. No guarding. MUSCULOSKELETAL: Extremities without clubbing, cyanosis, or edema. No joint tenderness, effusion, or edema noted. No calf tenderness. Negative Homans sign bilaterally. NEUROLOGICAL: Awake and alert. Cranial nerves II through XII intact. Motor and sensory grossly within normal limits. Five out of 5 muscle strength in all muscle groups. Normal speech. Laboratory Laboratory Tests Test 08/16/16 08/16/16 08/17/16 08/17/16 23:10 23:30 01:00 10:56 White Blood Count 7.0 Red Blood Count 5.02 Hemoglobin 16.0 Hematocrit 45.2 Mean Corpuscular Volume 90.1 Mean Corpuscular Hemoglobin 31.8 Mean Corpuscular Hemoglobin 35.3 Concent Red Cell Distribution Width 12.7 Platelet Count 205 Mean Platelet Volume 7.1 Neutrophils (%) (Auto) 58.7 Lymphocytes (%) (Auto) 29.7 Monocytes (%) (Auto) 9.3 Eosinophils (%) (Auto) 1.7 Basophils (%) (Auto) 0.6 Neutrophils # (Auto) 4.1 Lymphocytes # (Auto) 2.1 Monocytes # (Auto) 0.7 Eosinophils # (Auto) 0.1 Basophils # (Auto) 0.0 CBC Comment DIFF FINAL Differential Comment Prothrombin Time 10.5 Prothromb Time International 1.0 Ratio Activated Partial 26.1 Thromboplast Time Salicylates Level LESS THAN 1.7 Sodium Level 139 Potassium Level 4.1 Chloride Level 102 Carbon Dioxide Level 26.8 Anion Gap 10 Blood Urea Nitrogen 11 Creatinine 0.64 Estimat Glomerular Filtration 99 Rate Random Glucose 99 Calcium Level 10.5 Total Bilirubin 0.6 0.7 Aspartate Amino Transf 8 6 (AST/SGOT) Alanine Aminotransferase 18 16 (ALT/SGPT) Alkaline Phosphatase 86 79 Total Protein 7.8 7.3 Albumin 4.1 3.8 Thyroid Stimulating Hormone 3.060 3rd Gen Acetaminophen Level LESS THAN 2.0 Ethyl Alcohol Level LESS THAN 3 Urine Color YELLOW Urine Turbidity HAZY Urine pH 5.5 Urine Specific [place] 1.028 Urine Protein TRACE Urine Glucose (UA) NEG Urine Ketones NEG Urine Occult Blood MOD Urine Nitrite NEG Urine Bilirubin NEG Urine Urobilinogen LESS THAN 2.0 Urine Leukocyte Esterase NEG Urine RBC 9 Urine WBC 6 Urine Squamous Epithelial 3 Cells Urine Renal Epithelial Cells <1 Urine Bacteria RARE Urine Hyaline Casts 23 Urine Mucus MANY Microscopic Urinalysis Comment CATH-CULTURE IND Urine Opiates Screen NEG Urine Barbiturates Screen NEG Urine Amphetamines Screen NEG Urine Benzodiazepines Screen NEG Urine Cocaine Screen NEG Urine Cannabinoids Screen NEG CSF Volume (Tube 1) 1.1 CSF Supernatant Color (tube 1) CLEAR CSF Gross Blood (Tube 1) 0 CSF Volume (Tube 2) 1.2 CSF Supernatant Color (tube 2) CLEAR CSF Gross Blood (Tube 2) 0 CSF Volume (Tube 3) 1.3 CSF Supernatant Color (tube 3) CLEAR CSF Gross Blood (Tube 3) 0 CSF Volume (Tube 4) 2.9 CSF Supernatant Color (tube 4) CLEAR CSF Gross Blood (Tube 4) 0 CSF WBC (Tube 4) 4 CSF RBC (Tube 4) 0 CSF Neutrophils 0 CSF Lymphocytes 100 CSF Glucose 59 CSF Total Protein 90.9 Erythrocyte Sedimentation Rate 9 Direct Bilirubin 0.1 Indirect Bilirubin 0.6 Total Creatine Kinase 69 Vitamin B12 Level 576 Hepatitis A IgM Antibody NEGATIVE Hepatitis B Surface Antigen NEGATIVE Hepatitis B Core IgM Antibody NEGATIVE Hepatitis C Antibody NEGATIVE HIV (1&2) Antibody NEGATIVE Date/Time Procedure Status Source Growth 08/17/16 01:00 Gram Stain - Final Resulted Cerebral Spinal Fluid Lumbar Puncture 08/17/16 01:00 CSF Culture Resulted Cerebral Spinal Fluid Lumbar Puncture Pending 08/16/16 23:30 Urine Culture - Preliminary Resulted Urine Clean Catch RESULTS PENDING Result Diagram: 08/16/16 2310 08/16/16 2310 Imaging Last Impressions Brain MRI 08/17/16 0248 Signed Impressions: Service Date/Time: Wednesday, August 17, 2016 04:47 - CONCLUSION: 1. A few tiny high signal spots are seen in the white matter tracks bilaterally suggestive of some ischemic demyelinization. 2. Otherwise, unremarkable MRI of the brain. Catrachito Leal MD Thoracic Spine MRI 08/17/16 0000 Signed Impressions: Service Date/Time: Wednesday, August 17, 2016 04:47 - CONCLUSION: 1. Focal right paracentral bulging at T9-T10. 2. Mild primarily bony degenerative changes of the thoracic spine. Catrachito Leal MD Lumbar Spine MRI 08/17/16 0000 Signed Impressions: Service Date/Time: Wednesday, August 17, 2016 04:47 - CONCLUSION: 1. Focal mild central bulging L3-4. 2. Disc dehydration with disc space narrowing at L5-S1 3. Bilateral facet arthritis at multiple levels. Catrachito Leal MD Cervical Spine MRI 08/17/16 0000 Signed Impressions: Service Date/Time: Wednesday, August 17, 2016 04:47 - CONCLUSION: 1. There is broad-based bulging and left lateral bulging/protrusion at C5-6. 2. Moderate diffuse broad-based bulging at C4-5. 3. Mild broad-based bulging at C6-7 4. Primary bony degenerative changes of the cervical spine with disc space narrowing at C4-5 and C5-6. Catrachito Leal MD Chest X-Ray 08/16/16 2234 Signed Impressions: Service Date/Time: August 22:46 - CONCLUSION: No acute disease. Coy Delatorre MD Septic Shock Reassessment Heart: Regular rate and rhythm Lungs: Clear Skin: Warm Peripheral Pulses: Bounding Right Radial Bounding Left Radial Bounding Right Popliteal Bounding Left Popliteal Bounding Right Dorsalis Pedis Bounding Left Dorsalis Pedis Bounding Right Posterior Tibial Bounding Left Posterior Tibial Capillary Refill: Brisk Assessment and Plan Problem List: (1) Guillain Lowe syndrome Status: Acute Plan: - Ascending weakness - Hyporeflexia - Stocking-glove paresthesias - antecedentl spiral gastroenteritis - Imaging studies do NOT indicate likely acute infarction infarction - IVIG x 5 days - PT - gabapentin (2) HTN (hypertension) Status: Acute Plan: - metoprolol - increase lisinopril to 20mg BID - prn catapress, prn IV vasotec Physician Certification 2 Midnight Certification Type: Admission for Inpatient Services Order for Inpatient Services The services are ordered in accordance with Medicare regulations or non- Medicare payer requirements, as applicable. In the case of services not specified as inpatient-only, they are appropriately provided as inpatient services in accordance with the 2-midnight benchmark. Estimated LOS (days): 3 3 days is the estimated time the patient will need to remain in the hospital, assuming treatment plan goals are met and no additional complications. Post-Hospital Plan: Not yet determined Problem Qualifiers (1) HTN (hypertension): Qualified Code: I10 - Essential hypertension Werner Rivas DO Aug 17, 2016 15:08
[2016-08-17] MEDS ORDERED: ENALAPRILAT 1.25 MG/ML VIAL IV PRN (15:15)
[2016-08-17] MEDS: cloNIDine HCL 0.2 MG TAB PO PRN (15:18)
--- NOTE | 2016-08-17 16:15 | PD ---
Physical Exam Date Seen by Provider: Aug 17, 2016 Time Seen by Provider: 01:00 Data Data Last Documented VS Vital Signs Date Time Temp Pulse Resp B/P Pulse Ox O2 Delivery O2 Flow Rate FiO2 08/17/16 00:25 78 16 170/84 98 Room Air 08/16/16 16:28 98.6 Orders Electrocardiogram (08/16/16 22:34) Complete Blood Count With Diff (08/16/16 22:34) Comprehensive Metabolic Panel (08/16/16 22:34) Prothrombin Time / Inr (Pt) (08/16/16 22:34) Act Partial Throm Time (Ptt) (08/16/16 22:34) Thyroid Stimulating Hormone (08/16/16 22:34) Urinalysis - C+S If Indicated (08/16/16 22:34) Chest, Single Ap (08/16/16 22:34) Blood Glucose (08/16/16 22:34) Ecg Monitoring (08/16/16 22:34) Iv Access Insert/Monitor (08/16/16 22:34) Oximetry (08/16/16 22:34) Sodium Chloride 0.9% Flush (Ns Flush) (08/16/16 22:45) Sodium Chlor 0.9% 1000 Ml Inj (Ns 1000 M (08/16/16 22:34) Drug Screen, Random Urine (08/16/16 22:34) Alcohol (Ethanol) (08/16/16 22:34) Salicylates (Aspirin) (08/16/16 22:34) Tylenol (Acetaminophen) (08/16/16 22:34) Ed Urine Pregnancytest Poc (08/16/16 22:34) Urine Culture (08/16/16 23:30) Admit Order (Ed Use Only) (08/17/16 ) Labs Laboratory Tests Test 08/16/16 08/16/16 23:10 23:30 White Blood Count 7.0 TH/MM3 Red Blood Count 5.02 MIL/MM3 Hemoglobin 16.0 GM/DL Hematocrit 45.2 % Mean Corpuscular Volume 90.1 FL Mean Corpuscular Hemoglobin 31.8 PG Mean Corpuscular Hemoglobin 35.3 % Concent Red Cell Distribution Width 12.7 % Platelet Count 205 TH/MM3 Mean Platelet Volume 7.1 FL Neutrophils (%) (Auto) 58.7 % Lymphocytes (%) (Auto) 29.7 % Monocytes (%) (Auto) 9.3 % Eosinophils (%) (Auto) 1.7 % Basophils (%) (Auto) 0.6 % Neutrophils # (Auto) 4.1 TH/MM3 Lymphocytes # (Auto) 2.1 TH/MM3 Monocytes # (Auto) 0.7 TH/MM3 Eosinophils # (Auto) 0.1 TH/MM3 Basophils # (Auto) 0.0 TH/MM3 CBC Comment DIFF FINAL Differential Comment Prothrombin Time 10.5 SEC Prothromb Time International 1.0 RATIO Ratio Activated Partial 26.1 SEC Thromboplast Time Salicylates Level LESS THAN 1.7 MG/DL Sodium Level 139 MEQ/L Potassium Level 4.1 MEQ/L Chloride Level 102 MEQ/L Carbon Dioxide Level 26.8 MEQ/L Anion Gap 10 MEQ/L Blood Urea Nitrogen 11 MG/DL Creatinine 0.64 MG/DL Estimat Glomerular Filtration 99 ML/MIN Rate Random Glucose 99 MG/DL Calcium Level 10.5 MG/DL Total Bilirubin 0.6 MG/DL Aspartate Amino Transf 8 U/L (AST/SGOT) Alanine Aminotransferase 18 U/L (ALT/SGPT) Alkaline Phosphatase 86 U/L Total Protein 7.8 GM/DL Albumin 4.1 GM/DL Thyroid Stimulating Hormone 3.060 uIU/ML 3rd Gen Acetaminophen Level LESS THAN 2.0 MCG/ML Ethyl Alcohol Level LESS THAN 3 MG/DL Urine Color YELLOW Urine Turbidity HAZY Urine pH 5.5 Urine Specific [place] 1.028 Urine Protein TRACE mg/dL Urine Glucose (UA) NEG mg/dL Urine Ketones NEG mg/dL Urine Occult Blood MOD Urine Nitrite NEG Urine Bilirubin NEG Urine Urobilinogen LESS THAN 2.0 MG/DL Urine Leukocyte Esterase NEG Urine RBC 9 /hpf Urine WBC 6 /hpf Urine Squamous Epithelial 3 /hpf Cells Urine Renal Epithelial Cells <1 /hpf Urine Bacteria RARE /hpf Urine Hyaline Casts 23 /lpf Urine Mucus MANY /lpf Microscopic Urinalysis Comment CATH-CULTURE IND Urine Opiates Screen NEG Urine Barbiturates Screen NEG Urine Amphetamines Screen NEG Urine Benzodiazepines Screen NEG Urine Cocaine Screen NEG Urine Cannabinoids Screen NEG MDM Supervised Visit with CRISTIN: No Procedures Procedure Narrative LUMBAR PUNCTURE: The patient was placed in the left lateral decubitus position. The lumbar area of the back was prepped with chlorhexadine followed by Betadine and sterilely draped. The L4 - - L5 interspace was infiltrated with 1% lidocaine plain. Number 20 gauge LP needle was placed in the interspace. Opening pressure deferred. Number 6 milliliters of clear CSF were obtained. Patient tolerated procedure well. Diagnosis Primary Impression: Lower extremity weakness Qualified Code: R29.898 - Weakness of both lower extremities Additional Impression: Inability to bear weight Condition: Stable Olvin Rodgers MD Aug 17, 2016 16:15
[2016-08-17] MEDS: ACETAMINOPHEN/HYDROcodone 325 MG/5 MG TAB PO PRN ×2 (16:31→23:43)
[2016-08-17] MEDS: ONDANSETRON HCL 4 MG/2 ML VIAL IV PUSH PRN ×2 (16:34→23:50)
[2016-08-17] MEDS ORDERED: ACETAMINOPHEN 325 MG TAB PO PRN (18:00)
[2016-08-17] MEDS: LISINOPRIL 5 MG TAB PO SCH (20:27)
[2016-08-18] MEDS ORDERED: MORPHINE SULFATE 4 MG/ML INJ IV SCH
[2016-08-18] MEDS: DEXTROSE 5% IN WATE 500 ML INJ 500 ML OTHER SCH ×2 (02:37→10:53)
[2016-08-18 05:32] VITALS: BP 143/86; PULSE 75; RESP 18; TEMP 97.8; O2SAT 97
[2016-08-18] MEDS: ACETAMINOPHEN/HYDROcodone 325 MG/5 MG TAB PO PRN (06:17)
[2016-08-18 08:00] VITALS: PULSE 71
[2016-08-18 08:20] VITALS: BP 175/90; PULSE 70; RESP 18; TEMP 98.5; O2SAT 98
[2016-08-18 08:22] LABS: AUTOMATED NEUTROPHIL # 2.5 TH/MM3 (1.8-7.7); BASOPHIL % 0.5 % (0.0-2.0); EOSINOPHIL # 0.1 TH/MM3 (0-0.4); EOSINOPHIL % 2.7 % (0.0-4.0); HEMATOCRIT 42.5 % (35.0-46.0); HEMO FLAGS DIFF FINAL; LYMPH % 38.1 % (9.0-44.0); LYMPHOCYTE # 1.9 TH/MM3 (1.0-4.8); MEAN CORPUSCULAR HEMOGLOBIN 31.2 PG (27.0-34.0); MEAN CORPUSCULAR HGB CONC 33.6 % (32.0-36.0); MONO % 8.4 % (0.0-8.0); NEUT % 50.3 % (16.0-70.0); PLATELET COUNT 156 TH/MM3 (150-450); RED BLOOD COUNT 4.57 MIL/MM3 (4.00-5.30); RED CELL DISTRIBUTION WIDTH 12.6 % (11.6-17.2); WHITE BLOOD COUNT 4.9 TH/MM3 (4.0-11.0)
[2016-08-18 08:58] LABS: BICARBONATE 23.4 MEQ/L (21.0-32.0)
[2016-08-18] MEDS: ACETAMINOPHEN 325 MG TAB PO SCH (09:17)
[2016-08-18] MEDS: diphenhydrAMINE HCL 25 MG CAP PO SCH (09:17)
[2016-08-18] MEDS: LISINOPRIL 5 MG TAB PO SCH ×2 (09:17→20:22)
[2016-08-18] MEDS: HEPARIN SODIUM - SQ 10,000 UNITS/ML VIAL SQ SCH ×2 (09:18→20:21)
[2016-08-18] MEDS: GABAPENTIN 100 MG CAP PO SCH ×3 (09:18→18:19)
[2016-08-18] MEDS: METOPROLOL TARTRATE 25 MG TAB PO SCH ×2 (09:18→20:22)
[2016-08-18] MEDS: PANTOPRAZOLE SOD 20 MG DELAYED RELEASE TAB PO SCH (09:18)
[2016-08-18] MEDS: SODIUM CHLORID 0.9% 500 ML INJ 500 ML IV SCH (09:21)
[2016-08-18] MEDS: ONDANSETRON HCL 4 MG/2 ML VIAL IV PUSH PRN (09:30)
[2016-08-18] MEDS: IMMUNE GLOBULIN INJ 30 GM in SYRINGE/BAG 1 EA IV SCH (10:52)
--- NOTE | 2016-08-18 11:09 | HHI.PR ---
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 alternative is PLEX with vasc cath and about 8-10 days of tx ivig x 2/5 days pain control, iv dilaudid iv zofran before meals p.t. 5th floor with tele gabapentin for paresthesias follow exam (2) Lower extremity weakness (3) Paresthesias Subjective Subjective Comments garcia and n/v with ivig hands feel better No chest pain No dyspnea Active Medications Current Medications Medications (Trade) Dose Ordered Sig/Levy Route Start Time Stop Time Status Last Admin (NS Flush) 2 ml UNSCH PRN IVF 08/16/16 22:45 08/17/16 08:12 (Lopressor) 25 mg Q12HR PO 08/17/16 09:00 08/18/16 09:18 (Protonix) 20 mg DAILY PO 08/17/16 09:00 08/18/16 09:18 (Tums Chew) 1,000 mg Q6H PRN PO 08/17/16 03:45 08/17/16 04:05 (Neurontin) 200 mg TID PO 08/17/16 09:00 08/18/16 09:18 Heparin Sodium (Porcine) 5000 units 5,000 units BID SQ 08/17/16 09:00 08/18/16 09:18 Sodium Chloride 500 ml @ 500 mls/hr Q24H IV 08/17/16 09:00 08/21/16 09:59 08/18/16 09:21 Dextrose 500 ml @ 30 mls/hr [id number] OTHER 08/17/16 09:57 08/20/16 21:16 08/18/16 10:53 (Privigen Inj/ Syringe/Bag) 300 ml @ 22.2 mls/hr Q24H IV 08/17/16 11:00 08/22/16 00:31 08/18/16 10:52 (Benadryl Inj) 50 mg UNSCH PRN IV PUSH 08/17/16 10:00 08/23/16 09:59 Epinephrine HCl 0.3 mg 0.3 mg Q10M PRN OTHER 08/17/16 10:00 08/23/16 09:59 (NS 1000 ml Inj) 1,000 ml @ 75 mls/hr [id number] IV 08/17/16 09:15 08/17/16 23:50 ([place] 5-325 Mg) 1 tab Q6H PRN PO 08/17/16 10:00 08/18/16 06:17 (Benadryl) 25 mg DAILY@10 PO 08/17/16 10:00 08/22/16 08:59 08/18/16 09:17 (Catapres) 0.2 mg Q6H PRN PO 08/17/16 15:15 08/17/16 15:18 (Vasotec Inj) 1.25 mg Q6H PRN IV 08/17/16 15:15 (Prinivil) 20 mg BID PO 08/17/16 21:00 08/18/16 09:17 (Tylenol) 650 mg Q6HR PRN PO 08/17/16 18:00 08/17/16 20:40 (Zofran Inj) 4 mg Q6HR PRN IV PUSH 08/17/16 16:30 08/18/16 16:00 08/18/16 09:30 (Tylenol) 650 mg DAILY@10 PO 08/18/16 10:00 08/21/16 10:01 08/18/16 09:17 (Zofran Inj) 4 mg BIDAC IV PUSH 08/18/16 16:00 UNV (Dilaudid Pf Inj) 1 mg Q6HR PRN IV PUSH 08/18/16 11:15 UNV Allergies Allergies Coded Allergies No Known Allergies (Verified08/16/16) Review of Systems All other ROS: ROS reviewed as documented in chart Exam I&O / VS Vital Signs Date Time Temp Pulse Resp B/P Pulse Ox O2 Delivery O2 Flow Rate FiO2 08/18/16 08:20 98.5 70 18 175/90 98 08/18/16 05:32 97.8 75 18 143/86 97 08/18/16 00:45 22 08/17/16 23:39 97.6 76 18 145/98 98 08/17/16 21:45 20 08/17/16 20:10 98.2 84 20 142/79 96 08/17/16 20:00 85 08/17/16 15:55 97.7 86 18 144/92 97 08/17/16 14:26 97.5 94 16 171/85 96 08/17/16 13:53 98.6 85 16 171/99 97 08/17/16 13:21 96.2 79 18 173/91 97 08/17/16 13:08 170/80 97 08/17/16 12:00 98.2 81 18 169/99 97 General: Alert and Oriented, No acute distress Eye: EOMI Respiratory: Non-labored respirations Cardiology: Normal rate Neurologic: Alert, Oriented, CN II-XII intact Psychiatric: Cooperative, Appropriate mood & affect, Normal judgement, Non- suicidal Exam Comments ox 3, pleasant. eomi, face sym, ou 3-2, no ptosis, mild neck rigidity, generalized weakness 3-4/5 prox>distal, able to briefly raise legs to gravity, arms for a few seconds, able to outreach counselor marquise 4+/5, wrist ext 4+5, foot dorsiflexion 4/5, msr trace, no clonus, planter flexor, allodynia/mild hyperpathia in distal dital legs/arms Objective Micro and Labs Laboratory Tests Test 08/18/16 07:00 White Blood Count 4.9 Red Blood Count 4.57 Hemoglobin 14.3 Hematocrit 42.5 Mean Corpuscular Volume 93.0 Mean Corpuscular Hemoglobin 31.2 Mean Corpuscular Hemoglobin 33.6 Concent Red Cell Distribution Width 12.6 Platelet Count 156 Mean Platelet Volume 7.5 Neutrophils (%) (Auto) 50.3 Lymphocytes (%) (Auto) 38.1 Monocytes (%) (Auto) 8.4 Eosinophils (%) (Auto) 2.7 Basophils (%) (Auto) 0.5 Neutrophils # (Auto) 2.5 Lymphocytes # (Auto) 1.9 Monocytes # (Auto) 0.4 Eosinophils # (Auto) 0.1 Basophils # (Auto) 0.0 CBC Comment DIFF FINAL Differential Comment Sodium Level 136 Potassium Level 4.0 Chloride Level 104 Carbon Dioxide Level 23.4 Anion Gap 9 Blood Urea Nitrogen 10 Creatinine 0.46 Estimat Glomerular Filtration 146 Rate Random Glucose 92 Calcium Level 8.5 Date/Time Procedure Status Source Growth 08/17/16 01:00 Gram Stain - Final Resulted Cerebral Spinal Fluid Lumbar Puncture 08/17/16 01:00 CSF Culture - Preliminary Resulted Cerebral Spinal Fluid Lumbar Puncture NO GROWTH IN 24 HOURS. 08/16/16 23:30 Urine Culture - Final Complete Urine Clean Catch Gardnerella Vaginalis Problem Qualifiers (1) Lower extremity weakness: Qualified Code: R29.898 - Weakness of both lower extremities Franck Lee MD Aug 18, 2016 11:09
[2016-08-18] MEDS: SODIUM CHLOR 0.9% 1000 ML INJ 1,000 ML IV SCH (11:55)
[2016-08-18 13:38] VITALS: BP 177/84; PULSE 70; RESP 18; TEMP 96.9; O2SAT 95
[2016-08-18] MEDS: ONDANSETRON HCL 4 MG/2 ML VIAL IV PUSH SCH (15:28)
[2016-08-18] MEDS: HYDROmorphone HCL PF 1 MG/ML VIAL IV PUSH PRN ×2 (15:28→20:30)
--- NOTE | 2016-08-18 18:07 | HHI.PR ---
Subjective Remarks No improvement, still with LE weakness. Pt c/o nausea with IVIG Objective Vitals Vital Signs Date Time Temp Pulse Resp B/P Pulse Ox O2 Delivery O2 Flow Rate FiO2 08/18/16 13:38 96.9 70 18 177/84 95 08/18/16 08:20 98.5 70 18 175/90 98 08/18/16 08:00 71 08/18/16 05:32 97.8 75 18 143/86 97 08/18/16 00:45 22 08/17/16 23:39 97.6 76 18 145/98 98 08/17/16 21:45 20 08/17/16 20:10 98.2 84 20 142/79 96 08/17/16 20:00 85 Result Diagram: 08/18/16 0700 08/18/16 0700 Imaging Last Impressions Brain MRI 08/17/16 0248 Signed Impressions: Service Date/Time: Wednesday, August 17, 2016 04:47 - CONCLUSION: 1. A few tiny high signal spots are seen in the white matter tracks bilaterally suggestive of some ischemic demyelinization. 2. Otherwise, unremarkable MRI of the brain. Catrachito Leal MD Thoracic Spine MRI 08/17/16 0000 Signed Impressions: Service Date/Time: Wednesday, August 17, 2016 04:47 - CONCLUSION: 1. Focal right paracentral bulging at T9-T10. 2. Mild primarily bony degenerative changes of the thoracic spine. Catrachito Leal MD Lumbar Spine MRI 08/17/16 0000 Signed Impressions: Service Date/Time: Wednesday, August 17, 2016 04:47 - CONCLUSION: 1. Focal mild central bulging L3-4. 2. Disc dehydration with disc space narrowing at L5-S1 3. Bilateral facet arthritis at multiple levels. Catrachito Leal MD Cervical Spine MRI 08/17/16 0000 Signed Impressions: Service Date/Time: Wednesday, August 17, 2016 04:47 - CONCLUSION: 1. There is broad-based bulging and left lateral bulging/protrusion at C5-6. 2. Moderate diffuse broad-based bulging at C4-5. 3. Mild broad-based bulging at C6-7 4. Primary bony degenerative changes of the cervical spine with disc space narrowing at C4-5 and C5-6. Catrachito Leal MD Chest X-Ray 4/13/17 2234 Signed Impressions: Service Date/Time: August 22:46 - CONCLUSION: No acute disease. Coy Delatorre MD Objective Remarks GENERAL: This is a well-nourished, well-developed patient, in no apparent distress. CARDIOVASCULAR: Regular rate and rhythm without murmurs, gallops, or rubs. RESPIRATORY: Clear to auscultation. Breath sounds equal bilaterally. No wheezes , rales, or rhonchi. GASTROINTESTINAL: Abdomen soft, non-tender, nondistended. Normal active bowel sounds MUSCULOSKELETAL: Extremities without clubbing, cyanosis, or edema. NEURO: Alert & Oriented x3, weak at LE x b/l, unable to elicit patellar reflexes or brachiocephalic reflexes A/P Problem List: (1) Guillain Lowe syndrome Status: Acute Plan: - Ascending weakness - Hyporeflexia - Stocking-glove paresthesias - antecedent spiral gastroenteritis - Imaging studies do NOT indicate likely acute infarction infarction - IVIG x 5 days, pt having nausea but will try to tolerate - if pt unable to tolerate IVIG, then plasmapheresis - PT - gabapentin (2) HTN (hypertension) Status: Acute Plan: - metoprolol - increased lisinopril to 20mg BID - start procardia XL 30mg daily 09/17 - prn catapress, prn IV vasotec Problem Qualifiers (1) HTN (hypertension): Qualified Code: I10 - Essential hypertension Werner Rivas DO Aug 18, 2016 18:07
[2016-08-18] MEDS: NIFEdipine 30 MG SUSTAINED RELEASE TAB PO SCH (18:18)
[2016-08-18 19:00] VITALS: PULSE 70
[2016-08-18 20:00] VITALS: BP 195/86; PULSE 70; PULSE 76; RESP 20; TEMP 98.2; O2SAT 98
[2016-08-18] MEDS: SODIUM CHLORIDE 0.9% FLUSH 10 ML FLUSH IVF PRN (20:26)
[2016-08-18] MEDS ORDERED: oxyCODONE/ACETAMINOPHEN 5 MG/325 MG TAB PO PRN (21:00)
[2016-08-18] MEDS ORDERED: ONDANSETRON HCL 4 MG/2 ML VIAL IV PUSH PRN (21:00)
[2016-08-18] MEDS ORDERED: diphenhydrAMINE HCL 50 MG/ML VIAL IV PRN (21:00)
[2016-08-18] MEDS: cloNIDine HCL 0.2 MG TAB PO PRN (22:59)
[2016-08-19] VITALS (7 sets, daily range): BP systolic 111–196; BP diastolic 53–88; PULSE 66–90; RESP 20; TEMP 96.9–98.6; O2SAT 97–98
[2016-08-19] MEDS: SODIUM CHLOR 0.9% 1000 ML INJ 1,000 ML IV SCH ×2 (01:15→14:35)
[2016-08-19] MEDS: ONDANSETRON HCL 4 MG/2 ML VIAL IV PUSH SCH ×2 (06:39→17:07)
[2016-08-19 07:58] LABS: AUTOMATED NEUTROPHIL # 4.6 TH/MM3 (1.8-7.7); BASOPHIL % 0.4 % (0.0-2.0); EOSINOPHIL # 0.1 TH/MM3 (0-0.4); EOSINOPHIL % 0.9 % (0.0-4.0); HEMATOCRIT 39.8 % (35.0-46.0); HEMO FLAGS DIFF FINAL; LYMPH % 23.8 % (9.0-44.0); LYMPHOCYTE # 1.6 TH/MM3 (1.0-4.8); MEAN CELL VOLUME 89.5 FL (80.0-100.0); MEAN CORPUSCULAR HEMOGLOBIN 31.2 PG (27.0-34.0); MEAN CORPUSCULAR HGB CONC 34.9 % (32.0-36.0); MONO % 8.4 % (0.0-8.0); NEUT % 66.5 % (16.0-70.0); PLATELET COUNT 164 TH/MM3 (150-450); RED BLOOD COUNT 4.45 MIL/MM3 (4.00-5.30); RED CELL DISTRIBUTION WIDTH 12.6 % (11.6-17.2); WHITE BLOOD COUNT 6.9 TH/MM3 (4.0-11.0)
[2016-08-19 08:16] LABS: BICARBONATE 27.1 MEQ/L (21.0-32.0); POTASSIUM 3.7 MEQ/L (3.5-5.1)
[2016-08-19] MEDS: METOPROLOL TARTRATE 25 MG TAB PO SCH ×2 (08:21→21:50)
[2016-08-19] MEDS: PANTOPRAZOLE SOD 20 MG DELAYED RELEASE TAB PO SCH (08:21)
[2016-08-19] MEDS: GABAPENTIN 100 MG CAP PO SCH ×3 (08:21→17:07)
[2016-08-19] MEDS: NIFEdipine 30 MG SUSTAINED RELEASE TAB PO SCH (08:21)
[2016-08-19] MEDS: LISINOPRIL 5 MG TAB PO SCH ×2 (08:22→21:50)
[2016-08-19] MEDS: HEPARIN SODIUM - SQ 10,000 UNITS/ML VIAL SQ SCH ×2 (08:23→21:50)
[2016-08-19] MEDS: HYDROmorphone HCL PF 1 MG/ML VIAL IV PUSH PRN ×2 (08:24→22:28)
[2016-08-19] MEDS: SODIUM CHLORID 0.9% 500 ML INJ 500 ML IV SCH (09:00)
--- NOTE | 2016-08-19 10:59 | HHI.PR ---
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 continue with ivig ivig x 3/5 days pain control, iv dilaudid iv zofran before meals p.t. gabapentin for paresthesias-increase to 400mg tid follow exam (2) Lower extremity weakness (3) Paresthesias Subjective Subjective Comments No acute events reported No headache-improved constipation emigdio po this am episode of belching yesterday; feels better after No chest pain No dyspnea Active Medications Current Medications Medications (Trade) Dose Ordered Sig/Levy Route Start Time Stop Time Status Last Admin (NS Flush) 2 ml UNSCH PRN IVF 08/16/16 22:45 08/18/16 20:26 (Lopressor) 25 mg Q12HR PO 08/17/16 09:00 08/19/16 08:21 (Protonix) 20 mg DAILY PO 08/17/16 09:00 08/19/16 08:21 (Tums Chew) 1,000 mg Q6H PRN PO 08/17/16 03:45 08/17/16 04:05 (Neurontin) 200 mg TID PO 08/17/16 09:00 08/19/16 08:21 Heparin Sodium (Porcine) 5000 units 5,000 units BID SQ 08/17/16 09:00 08/19/16 08:23 Sodium Chloride 500 ml @ 500 mls/hr Q24H IV 08/17/16 09:00 08/21/16 09:59 08/18/16 09:21 Dextrose 500 ml @ 30 mls/hr [id number] OTHER 08/17/16 09:57 08/20/16 21:16 08/18/16 10:53 (Privigen Inj/ Syringe/Bag) 300 ml @ 22.2 mls/hr Q24H IV 08/17/16 11:00 08/22/16 00:31 08/18/16 10:52 (Benadryl Inj) 50 mg UNSCH PRN IV PUSH 08/17/16 10:00 08/23/16 09:59 Epinephrine HCl 0.3 mg 0.3 mg Q10M PRN OTHER 08/17/16 10:00 08/23/16 09:59 (NS 1000 ml Inj) 1,000 ml @ 75 mls/hr [id number] IV 08/17/16 09:15 08/19/16 01:15 (Benadryl) 25 mg DAILY@10 PO 08/17/16 10:00 08/22/16 08:59 08/18/16 09:17 (Catapres) 0.2 mg Q6H PRN PO 08/17/16 15:15 08/18/16 22:59 (Vasotec Inj) 1.25 mg Q6H PRN IV 08/17/16 15:15 (Prinivil) 20 mg BID PO 08/17/16 21:00 08/19/16 08:22 (Tylenol) 650 mg Q6HR PRN PO 08/17/16 18:00 08/17/16 20:40 (Tylenol) 650 mg DAILY@10 PO 08/18/16 10:00 08/21/16 10:01 08/18/16 09:17 (Zofran Inj) 4 mg BIDAC IV PUSH 08/18/16 16:00 08/19/16 06:39 (Dilaudid Pf Inj) 1 mg Q6HR PRN IV PUSH 08/18/16 11:15 08/19/16 08:24 (Procardia Xl) 30 mg DAILY PO 08/18/16 18:15 08/19/16 08:21 (Zofran Inj) 4 mg Q6H PRN IV PUSH 08/18/16 21:00 08/18/16 21:00 (Percocet 5-325 Mg) 1 tab Q6H PRN PO 08/18/16 21:00 (Benadryl Inj) 25 mg Q6H PRN IV 08/18/16 21:00 Allergies Allergies Coded Allergies No Known Allergies (Verified08/16/16) Review of Systems All other ROS: ROS reviewed as documented in chart Exam I&O / VS 08/18/16 08/18/16 08/19/16 15:00 23:00 07:00 Intake Total 542 ml 586 ml Output Total 1 ml Balance 542 ml 585 ml Intake Oral 120 ml 120 ml IV Total 422 ml 466 ml Output Urine Total 1 ml # Voids 2 2 # Bowel Movements 0 0 Vital Signs Date Time Temp Pulse Resp B/P Pulse Ox O2 Delivery O2 Flow Rate FiO2 08/19/16 10:51 80 08/19/16 08:40 97.7 85 20 136/68 98 08/19/16 04:00 97.7 67 20 111/53 98 08/19/16 00:00 98.0 76 20 196/87 97 08/18/16 20:00 70 08/18/16 20:00 98.2 76 20 195/86 98 08/18/16 19:00 70 08/18/16 13:38 96.9 70 18 177/84 95 General: Alert and Oriented, No acute distress Eye: EOMI Respiratory: Non-labored respirations Cardiology: Normal rate Neurologic: Alert, Oriented, CN II-XII intact Psychiatric: Cooperative, Appropriate mood & affect, Normal judgement, Non- suicidal Exam Comments ox 3, pleasant. eomi, face sym, ou 3-2, no ptosis, mild neck rigidity, generalized weakness 4+/5 prox>distal, able to legs to gravity more easily, msr trace, no clonus, planter flexor, allodynia/mild hyperpathia in distal dital legs/arms Objective Micro and Labs Laboratory Tests Test 08/19/16 07:43 White Blood Count 6.9 Red Blood Count 4.45 Hemoglobin 13.9 Hematocrit 39.8 Mean Corpuscular Volume 89.5 Mean Corpuscular Hemoglobin 31.2 Mean Corpuscular Hemoglobin 34.9 Concent Red Cell Distribution Width 12.6 Platelet Count 164 Mean Platelet Volume 7.1 Neutrophils (%) (Auto) 66.5 Lymphocytes (%) (Auto) 23.8 Monocytes (%) (Auto) 8.4 Eosinophils (%) (Auto) 0.9 Basophils (%) (Auto) 0.4 Neutrophils # (Auto) 4.6 Lymphocytes # (Auto) 1.6 Monocytes # (Auto) 0.6 Eosinophils # (Auto) 0.1 Basophils # (Auto) 0.0 CBC Comment DIFF FINAL Differential Comment Sodium Level 136 Potassium Level 3.7 Chloride Level 102 Carbon Dioxide Level 27.1 Anion Gap 7 Blood Urea Nitrogen 13 Creatinine 0.87 Estimat Glomerular Filtration 70 Rate Random Glucose 119 Calcium Level 9.1 Date/Time Procedure Status Source Growth 08/17/16 01:00 Gram Stain - Final Resulted Cerebral Spinal Fluid Lumbar Puncture 08/17/16 01:00 CSF Culture - Preliminary Resulted Cerebral Spinal Fluid Lumbar Puncture NO GROWTH IN 48 HOURS. 08/16/16 23:30 Urine Culture - Final Complete Urine Clean Catch Gardnerella Vaginalis Problem Qualifiers (1) Lower extremity weakness: Qualified Code: R29.898 - Weakness of both lower extremities Franck Lee MD Aug 19, 2016 10:59
[2016-08-19] MEDS: IMMUNE GLOBULIN INJ 30 GM in SYRINGE/BAG 1 EA IV SCH (11:00)
[2016-08-19] MEDS: diphenhydrAMINE HCL 25 MG CAP PO SCH (11:17)
[2016-08-19] MEDS: ACETAMINOPHEN 325 MG TAB PO SCH (11:17)
[2016-08-19] MEDS: DEXTROSE 5% IN WATE 500 ML INJ 500 ML OTHER SCH (11:57)
--- NOTE | 2016-08-19 13:18 | HHI.PR ---
Subjective Remarks Some improvement in LE weakness. Less nausea today. Pt able to tolerate breakfast. Pt c/o constipation Objective Vitals Vital Signs Date Time Temp Pulse Resp B/P Pulse Ox O2 Delivery O2 Flow Rate FiO2 08/19/16 12:39 98.6 66 20 170/85 97 08/19/16 10:51 80 08/19/16 08:40 97.7 85 20 136/68 98 08/19/16 04:00 97.7 67 20 111/53 98 08/19/16 00:00 98.0 76 20 196/87 97 08/18/16 20:00 70 08/18/16 20:00 98.2 76 20 195/86 98 08/18/16 19:00 70 08/18/16 13:38 96.9 70 18 177/84 95 08/18/16 08/18/16 08/19/16 15:00 23:00 07:00 Intake Total 542 ml 586 ml Output Total 1 ml Balance 542 ml 585 ml Intake Oral 120 ml 120 ml IV Total 422 ml 466 ml Output Urine Total 1 ml # Voids 2 2 # Bowel Movements 0 0 Result Diagram: 08/19/16 0743 08/19/16 0743 Imaging Last Impressions Brain MRI 08/17/16 0248 Signed Impressions: Service Date/Time: Wednesday, August 17, 2016 04:47 - CONCLUSION: 1. A few tiny high signal spots are seen in the white matter tracks bilaterally suggestive of some ischemic demyelinization. 2. Otherwise, unremarkable MRI of the brain. Catrachito Leal MD Thoracic Spine MRI 08/17/16 0000 Signed Impressions: Service Date/Time: Wednesday, August 17, 2016 04:47 - CONCLUSION: 1. Focal right paracentral bulging at T9-T10. 2. Mild primarily bony degenerative changes of the thoracic spine. Catrachito Leal MD Lumbar Spine MRI 08/17/16 0000 Signed Impressions: Service Date/Time: Wednesday, August 17, 2016 04:47 - CONCLUSION: 1. Focal mild central bulging L3-4. 2. Disc dehydration with disc space narrowing at L5-S1 3. Bilateral facet arthritis at multiple levels. Catrachito Leal MD Cervical Spine MRI 08/17/16 0000 Signed Impressions: Service Date/Time: Wednesday, August 17, 2016 04:47 - CONCLUSION: 1. There is broad-based bulging and left lateral bulging/protrusion at C5-6. 2. Moderate diffuse broad-based bulging at C4-5. 3. Mild broad-based bulging at C6-7 4. Primary bony degenerative changes of the cervical spine with disc space narrowing at C4-5 and C5-6. Catrachito Leal MD Chest X-Ray 08/16/16 2194 Signed Impressions: Service Date/Time: August 22:46 - CONCLUSION: No acute disease. Coy Delatorre MD Objective Remarks GENERAL: This is a well-nourished, well-developed patient, in no apparent distress. CARDIOVASCULAR: Regular rate and rhythm without murmurs, gallops, or rubs. RESPIRATORY: Clear to auscultation. Breath sounds equal bilaterally. No wheezes , rales, or rhonchi. GASTROINTESTINAL: Abdomen soft, non-tender, nondistended. Normal active bowel sounds MUSCULOSKELETAL: Extremities without clubbing, cyanosis, or edema. NEURO: Alert & Oriented x3, weak at LE x b/l --> marked improvement with LE strength. able to hold up legs against some resistance A/P Problem List: (1) Guillain Lowe syndrome Status: Acute Plan: - comgmt with Neurology - daughter with DICP - Ascending weakness - Hyporeflexia - Stocking-glove paresthesias - antecedent spiral gastroenteritis - Imaging studies do NOT indicate likely acute infarction infarction - IVIG x 5 days, 3/5 - if pt unable to tolerate IVIG, then plasmapheresis - PT - gabapentin (2) HTN (hypertension) Status: Acute Plan: - metoprolol - increased lisinopril to 20mg BID - start procardia XL 30mg daily 09/17 - continue to observe BP readings, may need to increase procardia XL - prn catapress, prn IV vasotec Problem Qualifiers (1) HTN (hypertension): Qualified Code: I10 - Essential hypertension Werner Rivas DO Aug 19, 2016 13:18 Werner Rivas DO Aug 19, 2016 13:18
[2016-08-19] MEDS: SODIUM CHLORIDE 0.9% FLUSH 10 ML FLUSH IVF PRN (22:28)
[2016-08-20] VITALS: BP 186/85; PULSE 82; RESP 20; TEMP 98; O2SAT 96
[2016-08-20] MEDS: cloNIDine HCL 0.2 MG TAB PO PRN (01:28)
[2016-08-20] MEDS: SODIUM CHLOR 0.9% 1000 ML INJ 1,000 ML IV SCH ×2 (03:55→17:15)
[2016-08-20 04:00] VITALS: BP 183/89; PULSE 86; RESP 20; TEMP 98.2; O2SAT 97
[2016-08-20] MEDS: DEXTROSE 5% IN WATE 500 ML INJ 500 ML OTHER SCH (04:37)
[2016-08-20] MEDS: ONDANSETRON HCL 4 MG/2 ML VIAL IV PUSH SCH ×2 (07:00→16:00)
[2016-08-20 08:00] VITALS: BP 134/81; PULSE 75; RESP 18; TEMP 98; O2SAT 96
[2016-08-20 08:33] LABS: AUTOMATED NEUTROPHIL # 3.7 TH/MM3 (1.8-7.7); BASOPHIL % 0.5 % (0.0-2.0); EOSINOPHIL # 0.1 TH/MM3 (0-0.4); EOSINOPHIL % 1.4 % (0.0-4.0); HEMATOCRIT 39.6 % (35.0-46.0); HEMO FLAGS DIFF FINAL; LYMPH % 27.9 % (9.0-44.0); LYMPHOCYTE # 1.7 TH/MM3 (1.0-4.8); MEAN CELL VOLUME 89.5 FL (80.0-100.0); MEAN CORPUSCULAR HEMOGLOBIN 31.2 PG (27.0-34.0); MEAN CORPUSCULAR HGB CONC 34.9 % (32.0-36.0); MONO % 8.7 % (0.0-8.0); NEUT % 61.5 % (16.0-70.0); PLATELET COUNT 185 TH/MM3 (150-450); RED BLOOD COUNT 4.43 MIL/MM3 (4.00-5.30); RED CELL DISTRIBUTION WIDTH 12.5 % (11.6-17.2)
--- NOTE | 2016-08-20 08:58 | HHI.PR ---
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 may need inpt rehab ivig x 4/5 days increase gabapentin to 600mg tid and add elavil at night. d/w pt garcia pain control-controlled iv zofran before meals p.t. follow exam (2) Lower extremity weakness (3) Paresthesias Subjective Subjective Comments No acute events reported still constipated able to ambulate with walker still with paresthesias No headache No chest pain No dyspnea Active Medications Current Medications Medications (Trade) Dose Ordered Sig/Levy Route Start Time Stop Time Status Last Admin (NS Flush) 2 ml UNSCH PRN IVF 08/16/16 22:45 08/19/16 22:28 (Lopressor) 25 mg Q12HR PO 08/17/16 09:00 08/19/16 21:50 (Protonix) 20 mg DAILY PO 08/17/16 09:00 08/19/16 08:21 (Tums Chew) 1,000 mg Q6H PRN PO 08/17/16 03:45 08/17/16 04:05 Heparin Sodium (Porcine) 5000 units 5,000 units BID SQ 08/17/16 09:00 08/19/16 21:50 Sodium Chloride 500 ml @ 500 mls/hr Q24H IV 08/17/16 09:00 08/21/16 09:59 08/19/16 09:00 Dextrose 500 ml @ 30 mls/hr [id number] OTHER 08/17/16 09:57 08/20/16 21:16 08/19/16 11:57 (Privigen Inj/ Syringe/Bag) 300 ml @ 22.2 mls/hr Q24H IV 08/17/16 11:00 08/22/16 00:31 08/19/16 11:00 (Benadryl Inj) 50 mg UNSCH PRN IV PUSH 08/17/16 10:00 08/23/16 09:59 Epinephrine HCl 0.3 mg 0.3 mg Q10M PRN OTHER 08/17/16 10:00 08/23/16 09:59 (NS 1000 ml Inj) 1,000 ml @ 75 mls/hr [id number] IV 08/17/16 09:15 08/20/16 03:55 (Benadryl) 25 mg DAILY@10 PO 08/17/16 10:00 08/22/16 08:59 08/19/16 11:17 (Catapres) 0.2 mg Q6H PRN PO 08/17/16 15:15 08/20/16 01:28 (Vasotec Inj) 1.25 mg Q6H PRN IV 08/17/16 15:15 (Prinivil) 20 mg BID PO 08/17/16 21:00 08/19/16 21:50 (Tylenol) 650 mg Q6HR PRN PO 08/17/16 18:00 08/17/16 20:40 (Tylenol) 650 mg DAILY@10 PO 08/18/16 10:00 08/21/16 10:01 08/19/16 11:17 (Zofran Inj) 4 mg BIDAC IV PUSH 08/18/16 16:00 08/19/16 17:07 (Dilaudid Pf Inj) 1 mg Q6HR PRN IV PUSH 08/18/16 11:15 08/19/16 22:28 (Procardia Xl) 30 mg DAILY PO 08/18/16 18:15 08/19/16 08:21 (Zofran Inj) 4 mg Q6H PRN IV PUSH 08/18/16 21:00 08/18/16 21:00 (Percocet 5-325 Mg) 1 tab Q6H PRN PO 08/18/16 21:00 (Benadryl Inj) 25 mg Q6H PRN IV 08/18/16 21:00 (Neurontin) 400 mg TID PO 08/19/16 13:00 08/19/16 17:07 (Lactulose Liq) 30 ml DAILY PRN PO 08/19/16 12:15 Allergies Allergies Coded Allergies No Known Allergies (Verified08/16/16) Review of Systems All other ROS: ROS reviewed as documented in chart Exam I&O / VS 08/19/16 08/19/16 08/20/16 15:00 23:00 07:00 Intake Total 480 ml 240 ml 120 ml Balance 480 ml 240 ml 120 ml Intake Oral 480 ml 240 ml 120 ml # Voids 3 1 1 # Bowel Movements 0 0 Vital Signs Date Time Temp Pulse Resp B/P Pulse Ox O2 Delivery O2 Flow Rate FiO2 08/20/16 08:00 98.0 75 18 134/81 96 08/20/16 04:00 98.2 86 20 183/89 97 08/20/16 00:00 98.0 82 20 186/85 96 08/19/16 20:00 98.6 90 20 180/88 98 08/19/16 16:20 96.9 87 20 178/86 98 08/19/16 12:39 98.6 66 20 170/85 97 08/19/16 10:51 80 General: Alert and Oriented, No acute distress Eye: EOMI Respiratory: Non-labored respirations Cardiology: Normal rate Neurologic: Alert, Oriented, CN II-XII intact Psychiatric: Cooperative, Appropriate mood & affect, Normal judgement, Non- suicidal Exam Comments ox 3, pleasant. eomi, face sym, ou 3-2, no ptosis, mild neck rigidity, generalized weakness 4+/5 prox>distal, able to legs to gravity more easily, msr trace, no clonus, planter flexor, allodynia/mild hyperpathia in distal dital legs/arms Objective Micro and Labs Laboratory Tests Test 08/20/16 07:52 White Blood Count 6.0 Red Blood Count 4.43 Hemoglobin 13.8 Hematocrit 39.6 Mean Corpuscular Volume 89.5 Mean Corpuscular Hemoglobin 31.2 Mean Corpuscular Hemoglobin 34.9 Concent Red Cell Distribution Width 12.5 Platelet Count 185 Mean Platelet Volume 7.3 Neutrophils (%) (Auto) 61.5 Lymphocytes (%) (Auto) 27.9 Monocytes (%) (Auto) 8.7 Eosinophils (%) (Auto) 1.4 Basophils (%) (Auto) 0.5 Neutrophils # (Auto) 3.7 Lymphocytes # (Auto) 1.7 Monocytes # (Auto) 0.5 Eosinophils # (Auto) 0.1 Basophils # (Auto) 0.0 CBC Comment DIFF FINAL Differential Comment Date/Time Procedure Status Source Growth 08/17/16 01:00 Gram Stain - Final Resulted Cerebral Spinal Fluid Lumbar Puncture 08/17/16 01:00 CSF Culture - Preliminary Resulted Cerebral Spinal Fluid Lumbar Puncture NO GROWTH IN 48 HOURS. 08/16/16 23:30 Urine Culture - Final Complete Urine Clean Catch Gardnerella Vaginalis Problem Qualifiers (1) Lower extremity weakness: Qualified Code: R29.898 - Weakness of both lower extremities Franck Lee MD Aug 20, 2016 08:58
[2016-08-20 09:07] LABS: BICARBONATE 27.2 MEQ/L (21.0-32.0); POTASSIUM 3.6 MEQ/L (3.5-5.1)
[2016-08-20] MEDS: LACTULOSE SYRUP 20 GM/30 ML CUP PO PRN (09:46)
[2016-08-20] MEDS: LISINOPRIL 5 MG TAB PO SCH ×2 (09:48→22:34)
[2016-08-20] MEDS: NIFEdipine 30 MG SUSTAINED RELEASE TAB PO SCH (09:48)
[2016-08-20] MEDS: METOPROLOL TARTRATE 25 MG TAB PO SCH ×2 (09:49→22:35)
[2016-08-20] MEDS: diphenhydrAMINE HCL 25 MG CAP PO SCH (09:49)
[2016-08-20] MEDS: PANTOPRAZOLE SOD 20 MG DELAYED RELEASE TAB PO SCH (09:49)
[2016-08-20] MEDS: ACETAMINOPHEN 325 MG TAB PO SCH (09:50)
[2016-08-20] MEDS: SODIUM CHLORID 0.9% 500 ML INJ 500 ML IV SCH (09:53)
[2016-08-20] MEDS: HEPARIN SODIUM - SQ 10,000 UNITS/ML VIAL SQ SCH ×2 (09:58→22:36)
[2016-08-20] MEDS: IMMUNE GLOBULIN INJ 30 GM in SYRINGE/BAG 1 EA IV SCH (11:00)
[2016-08-20 12:00] VITALS: BP 128/79; PULSE 77; RESP 17; TEMP 98.2; O2SAT 95
[2016-08-20] MEDS: GABAPENTIN 100 MG CAP PO SCH ×2 (13:00→17:46)
--- NOTE | 2016-08-20 13:35 | HHI.PR ---
Subjective Remarks Pt reports that the neuropathic pain is about the same. She does feel that the weakness is slightly better Objective Vitals Vital Signs Date Time Temp Pulse Resp B/P Pulse Ox O2 Delivery O2 Flow Rate FiO2 08/20/16 12:00 98.2 77 17 128/79 95 08/20/16 08:00 98.0 75 18 134/81 96 08/20/16 04:00 98.2 86 20 183/89 97 08/20/16 00:00 98.0 82 20 186/85 96 08/19/16 20:00 98.6 90 20 180/88 98 08/19/16 16:20 96.9 87 20 178/86 98 08/19/16 08/19/16 08/20/16 15:00 23:00 07:00 Intake Total 480 ml 240 ml 120 ml Balance 480 ml 240 ml 120 ml Intake Oral 480 ml 240 ml 120 ml # Voids 3 1 1 # Bowel Movements 0 0 Result Diagram: 08/20/16 0752 08/20/16 0752 Other Results Laboratory Tests Test 08/19/16 08/20/16 07:43 07:52 White Blood Count 6.9 TH/MM3 6.0 TH/MM3 Red Blood Count 4.45 MIL/MM3 4.43 MIL/MM3 Hemoglobin 13.9 GM/DL 13.8 GM/DL Hematocrit 39.8 % 39.6 % Mean Corpuscular Volume 89.5 FL 89.5 FL Mean Corpuscular Hemoglobin 31.2 PG 31.2 PG Mean Corpuscular Hemoglobin 34.9 % 34.9 % Concent Red Cell Distribution Width 12.6 % 12.5 % Platelet Count 164 TH/MM3 185 TH/MM3 Mean Platelet Volume 7.1 FL 7.3 FL Neutrophils (%) (Auto) 66.5 % 61.5 % Lymphocytes (%) (Auto) 23.8 % 27.9 % Monocytes (%) (Auto) 8.4 % 8.7 % Eosinophils (%) (Auto) 0.9 % 1.4 % Basophils (%) (Auto) 0.4 % 0.5 % Neutrophils # (Auto) 4.6 TH/MM3 3.7 TH/MM3 Lymphocytes # (Auto) 1.6 TH/MM3 1.7 TH/MM3 Monocytes # (Auto) 0.6 TH/MM3 0.5 TH/MM3 Eosinophils # (Auto) 0.1 TH/MM3 0.1 TH/MM3 Basophils # (Auto) 0.0 TH/MM3 0.0 TH/MM3 CBC Comment DIFF FINAL DIFF FINAL Differential Comment Sodium Level 136 MEQ/L 135 MEQ/L Potassium Level 3.7 MEQ/L 3.6 MEQ/L Chloride Level 102 MEQ/L 102 MEQ/L Carbon Dioxide Level 27.1 MEQ/L 27.2 MEQ/L Anion Gap 7 MEQ/L 6 MEQ/L Blood Urea Nitrogen 13 MG/DL 14 MG/DL Creatinine 0.87 MG/DL 0.68 MG/DL Estimat Glomerular Filtration 70 ML/MIN 93 ML/MIN Rate Random Glucose 119 MG/DL 103 MG/DL Calcium Level 9.1 MG/DL 9.0 MG/DL Imaging Last Impressions Brain MRI 08/17/16 0248 Signed Impressions: Service Date/Time: Wednesday, August 17, 2016 04:47 - CONCLUSION: 1. A few tiny high signal spots are seen in the white matter tracks bilaterally suggestive of some ischemic demyelinization. 2. Otherwise, unremarkable MRI of the brain. Catrachito Leal MD Thoracic Spine MRI 08/17/16 0000 Signed Impressions: Service Date/Time: Wednesday, August 17, 2016 04:47 - CONCLUSION: 1. Focal right paracentral bulging at T9-T10. 2. Mild primarily bony degenerative changes of the thoracic spine. Catrachito Leal MD Lumbar Spine MRI 08/17/16 0000 Signed Impressions: Service Date/Time: Wednesday, August 17, 2016 04:47 - CONCLUSION: 1. Focal mild central bulging L3-4. 2. Disc dehydration with disc space narrowing at L5-S1 3. Bilateral facet arthritis at multiple levels. Catrachito Leal MD Cervical Spine MRI 08/17/16 0000 Signed Impressions: Service Date/Time: Wednesday, August 17, 2016 04:47 - CONCLUSION: 1. There is broad-based bulging and left lateral bulging/protrusion at C5-6. 2. Moderate diffuse broad-based bulging at C4-5. 3. Mild broad-based bulging at C6-7 4. Primary bony degenerative changes of the cervical spine with disc space narrowing at C4-5 and C5-6. Catrachito Leal MD Chest X-Ray 08/16/16 2234 Signed Impressions: Service Date/Time: August 22:46 - CONCLUSION: No acute disease. Coy Delatorre MD Objective Remarks General: NAD, AAox3 Chest: CTA bilaterally Cardiac: Regular Abd: +BS, soft ND/NT Ext: Bilateral LE weakness, pt able to lift legs with some resistance (improving ) A/P Problem List: (1) Guillain Lowe syndrome Status: Acute Plan: - comgmt with Neurology - daughter with CIDP - Ascending weakness - Hyporeflexia - Stocking-glove paresthesias - antecedent spiral gastroenteritis - Imaging studies do NOT indicate likely acute infarction - IVIG x 5 days, Day 4 out of 5 - if pt unable to tolerate IVIG, then plasmapheresis - PT - Gabapentin increased to 600mg TID and Elavil 25mg HS added (2) HTN (hypertension) Status: Acute Plan: - metoprolol - Lisinopril 20mg BID - Procardia XL 30mg daily - BP is improved today - prn Catapres, prn IV Vasotec Assessment and Plan Patient examined. Assessment and plan formulated with Idalmis Loera PA-C. I agree with the above. GBS some improvement of strength but still stocking glove parasthesia/pain of wrist/hands and ankles/feet. neurontin increased. day 4/5 ivig PT eval. will need snf. monitor bp. Problem Qualifiers (1) HTN (hypertension): Qualified Code: I10 - Essential hypertension Idalmis Loera Aug 20, 2016 13:35 Drake Martinez MD Aug 20, 2016 13:54
[2016-08-20 16:00] VITALS: BP 130/78; PULSE 75; RESP 18; TEMP 98.1; O2SAT 66
[2016-08-20 16:55] LABS: CSF CRYPTOCOCCUS AG CONF ND (NOT DETECTD)
[2016-08-20 17:29] LABS: ANA SCREEN NEG (NEG)
[2016-08-20 20:00] VITALS: BP 144/86; PULSE 86; RESP 18; TEMP 99.2; O2SAT 96
[2016-08-20] MEDS: AMITRIPTYLINE HCL 25 MG TAB PO SCH (22:35)
[2016-08-21] VITALS: BP 139/74; PULSE 72; RESP 18; TEMP 98.8; O2SAT 97
[2016-08-21 04:00] VITALS: BP 139/74; PULSE 72; RESP 18; TEMP 98.8; O2SAT 97
[2016-08-21 08:00] VITALS: BP 179/89; PULSE 81; RESP 17; TEMP 97.2; O2SAT 96
--- NOTE | 2016-08-21 08:08 | HHI.PR ---
Review/Management Diagnosis/Plan: (1) Guillain Lowe syndrome Plan: probable gbs ascending weakness, hyporeflexic, stocking glove paresthesias with antecedent viral gastroenteritis +elevated protein with nml wbc and chemistries mri brain- minimal, non-significant white matter spots spinal cord normal interestingly, daughter with CIDP and receives ivig; pt and daughter may have genetic/immune etiology recs neuro stable ivig x 5/5 days try tramadol; gabapentin not helping. s/b d/w pt. no hx of sz ok to go to rehab today after ivig from neuro will need f/u in 2-4 weeks follow exam (2) Lower extremity weakness (3) Paresthesias Subjective Subjective Comments No acute events reported still having paresthesias; tolerated elavil No headache No chest pain No dyspnea Active Medications Current Medications Medications (Trade) Dose Ordered Sig/Levy Route Start Time Stop Time Status Last Admin (NS Flush) 2 ml UNSCH PRN IVF 08/16/16 22:45 08/19/16 22:28 (Lopressor) 25 mg Q12HR PO 08/17/16 09:00 08/20/16 22:35 (Protonix) 20 mg DAILY PO 08/17/16 09:00 08/20/16 09:49 (Tums Chew) 1,000 mg Q6H PRN PO 08/17/16 03:45 08/17/16 04:05 Heparin Sodium (Porcine) 5000 units 5,000 units BID SQ 08/17/16 09:00 08/20/16 22:36 Sodium Chloride 500 ml @ 500 mls/hr Q24H IV 08/17/16 09:00 08/21/16 09:59 08/20/16 09:53 (Privigen Inj/ Syringe/Bag) 300 ml @ 22.2 mls/hr Q24H IV 08/17/16 11:00 08/22/16 00:31 08/20/16 11:00 (Benadryl Inj) 50 mg UNSCH PRN IV PUSH 08/17/16 10:00 08/23/16 09:59 Epinephrine HCl 0.3 mg 0.3 mg Q10M PRN OTHER 08/17/16 10:00 08/23/16 09:59 (NS 1000 ml Inj) 1,000 ml @ 75 mls/hr [id number] IV 08/17/16 09:15 08/20/16 03:55 (Benadryl) 25 mg DAILY@10 PO 08/17/16 10:00 08/22/16 08:59 08/20/16 09:49 (Catapres) 0.2 mg Q6H PRN PO 08/17/16 15:15 08/20/16 01:28 (Vasotec Inj) 1.25 mg Q6H PRN IV 08/17/16 15:15 (Prinivil) 20 mg BID PO 08/17/16 21:00 08/20/16 22:34 (Tylenol) 650 mg Q6HR PRN PO 08/17/16 18:00 08/17/16 20:40 (Tylenol) 650 mg DAILY@10 PO 08/18/16 10:00 08/21/16 10:01 08/20/16 09:50 (Zofran Inj) 4 mg BIDAC IV PUSH 08/18/16 16:00 08/20/16 16:00 (Dilaudid Pf Inj) 1 mg Q6HR PRN IV PUSH 08/18/16 11:15 08/19/16 22:28 (Procardia Xl) 30 mg DAILY PO 08/18/16 18:15 08/20/16 09:48 (Zofran Inj) 4 mg Q6H PRN IV PUSH 08/18/16 21:00 08/18/16 21:00 (Percocet 5-325 Mg) 1 tab Q6H PRN PO 08/18/16 21:00 (Benadryl Inj) 25 mg Q6H PRN IV 08/18/16 21:00 (Lactulose Liq) 30 ml DAILY PRN PO 08/19/16 12:15 08/20/16 09:46 (Neurontin) 600 mg TID PO 08/20/16 13:00 08/20/16 17:46 (Elavil) 25 mg HS PO 08/20/16 21:00 08/20/16 22:35 Allergies Allergies Coded Allergies No Known Allergies (Verified08/16/16) Review of Systems All other ROS: ROS reviewed as documented in chart Exam I&O / VS 08/20/16 08/20/16 08/21/16 15:00 23:00 07:00 # Voids 2 4 Vital Signs Date Time Temp Pulse Resp B/P Pulse Ox O2 Delivery O2 Flow Rate FiO2 08/21/16 04:00 98.8 72 18 139/74 97 08/21/16 00:00 98.8 72 18 139/74 97 08/20/16 20:00 99.2 86 18 144/86 96 08/20/16 16:00 98.1 75 18 130/78 66 08/20/16 12:00 98.2 77 17 128/79 95 General: Alert and Oriented, No acute distress Eye: EOMI Respiratory: Non-labored respirations Cardiology: Normal rate Neurologic: Alert, Oriented, CN II-XII intact Psychiatric: Cooperative, Appropriate mood & affect, Normal judgement, Non- suicidal Exam Comments ox 3, pleasant. eomi, face sym, ou 3-2, no ptosis, mild neck rigidity, generalized weakness 4+/5 prox>distal, able to legs to gravity more easily, msr trace aj; kj 1+, no clonus, planter flexor, allodynia/mild hyperpathia in distal distal legs/arms; reduced pin in stocking glove distribution Objective Micro and Labs Date/Time Procedure Status Source Growth 08/17/16 01:00 Gram Stain - Final Complete Cerebral Spinal Fluid Lumbar Puncture 08/17/16 01:00 CSF Culture - Final Complete Cerebral Spinal Fluid Lumbar Puncture NO GROWTH IN 72 HOURS 08/16/16 23:30 Urine Culture - Final Complete Urine Clean Catch Gardnerella Vaginalis Problem Qualifiers (1) Lower extremity weakness: Qualified Code: R29.898 - Weakness of both lower extremities Franck Lee MD Aug 21, 2016 08:08
[2016-08-21] MEDS: LACTULOSE SYRUP 20 GM/30 ML CUP PO PRN (08:32)
[2016-08-21] MEDS: NIFEdipine 30 MG SUSTAINED RELEASE TAB PO SCH (08:32)
[2016-08-21] MEDS: PANTOPRAZOLE SOD 20 MG DELAYED RELEASE TAB PO SCH (08:32)
[2016-08-21] MEDS: LISINOPRIL 5 MG TAB PO SCH ×2 (08:32→22:45)
[2016-08-21] MEDS: METOPROLOL TARTRATE 25 MG TAB PO SCH ×2 (08:32→22:45)
[2016-08-21] MEDS: ONDANSETRON HCL 4 MG/2 ML VIAL IV PUSH SCH (08:33)
[2016-08-21] MEDS: HYDROmorphone HCL PF 1 MG/ML VIAL IV PUSH PRN (08:34)
[2016-08-21] MEDS: HEPARIN SODIUM - SQ 10,000 UNITS/ML VIAL SQ SCH ×2 (08:40→22:45)
[2016-08-21] MEDS: traMADol HCL 50 MG TAB PO SCH ×2 (09:00→16:25)
[2016-08-21] MEDS: SODIUM CHLORID 0.9% 500 ML INJ 500 ML IV SCH (09:00)
[2016-08-21] MEDS: diphenhydrAMINE HCL 25 MG CAP PO SCH (09:51)
[2016-08-21] MEDS: ACETAMINOPHEN 325 MG TAB PO SCH (09:51)
[2016-08-21] MEDS: IMMUNE GLOBULIN INJ 30 GM in SYRINGE/BAG 1 EA IV SCH (11:00)
[2016-08-21 12:00] VITALS: BP 180/96; PULSE 74; RESP 18; TEMP 97.1; O2SAT 98
--- NOTE | 2016-08-21 12:08 | HHI.PR ---
Subjective Remarks pt feels stronger. eager to do rehab and then get home constipated. Objective Vitals heart reg lung cta abd s/nt/bs ext no edema neuro. 1 plus reflex right knee/ankle improved strength of hip/knee/ankle ext/flexion Vital Signs Date Time Temp Pulse Resp B/P Pulse Ox O2 Delivery O2 Flow Rate FiO2 08/21/16 08:00 97.2 81 17 179/89 96 08/21/16 04:00 98.8 72 18 139/74 97 08/21/16 00:00 98.8 72 18 139/74 97 08/20/16 20:00 99.2 86 18 144/86 96 08/20/16 16:00 98.1 75 18 130/78 66 08/20/16 08/20/16 08/21/16 15:00 23:00 07:00 # Voids 2 4 Result Diagram: 08/20/16 0752 08/20/16 0752 Imaging Last Impressions Brain MRI 08/17/16 0248 Signed Impressions: Service Date/Time: Wednesday, August 17, 2016 04:47 - CONCLUSION: 1. A few tiny high signal spots are seen in the white matter tracks bilaterally suggestive of some ischemic demyelinization. 2. Otherwise, unremarkable MRI of the brain. Catrachito Leal MD Thoracic Spine MRI 08/17/16 0000 Signed Impressions: Service Date/Time: Wednesday, August 17, 2016 04:47 - CONCLUSION: 1. Focal right paracentral bulging at T9-T10. 2. Mild primarily bony degenerative changes of the thoracic spine. Catrachito Leal MD Lumbar Spine MRI 08/17/16 0000 Signed Impressions: Service Date/Time: Wednesday, August 17, 2016 04:47 - CONCLUSION: 1. Focal mild central bulging L3-4. 2. Disc dehydration with disc space narrowing at L5-S1 3. Bilateral facet arthritis at multiple levels. Catrachito Leal MD Cervical Spine MRI 08/17/16 0000 Signed Impressions: Service Date/Time: Wednesday, August 17, 2016 04:47 - CONCLUSION: 1. There is broad-based bulging and left lateral bulging/protrusion at C5-6. 2. Moderate diffuse broad-based bulging at C4-5. 3. Mild broad-based bulging at C6-7 4. Primary bony degenerative changes of the cervical spine with disc space narrowing at C4-5 and C5-6. Catrachito Leal MD Chest X-Ray 08/16/16 0069 Signed Impressions: Service Date/Time: August 22:46 - CONCLUSION: No acute disease. Coy Delatorre MD A/P Problem List: (1) Guillain Lowe syndrome Status: Acute Plan: Pt admitted with GBS after gi illness - daughter with CIDP - Ascending weakness- Hyporeflexia- Stocking-glove paresthesias - Imaging studies do NOT indicate likely acute infarction - completing ivig today. overall strength improving -still with alot of parasthesia pains. meds adjusted per neurology - bp stable. cont at rehab and titrate as needed/ -laxative d/c to rehab. [facility] is evaluating her. This pt is an excellent inpt rehab candidate. (2) HTN (hypertension) Status: Acute Plan: - metoprolol - Lisinopril 20mg BID - Procardia XL 30mg daily - BP is improved today - prn Catapres, prn IV Vasotec Problem Qualifiers (1) HTN (hypertension): Qualified Code: I10 - Essential hypertension Drake Martinez MD Aug 21, 2016 12:08
[2016-08-21] MEDS ORDERED: LISI-519 PO (12:12)
[2016-08-21] MEDS ORDERED: NIFE30TA8 PO (12:12)
[2016-08-21] MEDS ORDERED: ULTR50TA5 PO (12:12)
[2016-08-21] MEDS ORDERED: AMIT1TAB79 PO (12:12)
--- NOTE | 2016-08-21 12:12 | HHI.DCPOC ---
Discharge Care Plan Diagnosis: (1) Guillain Lowe syndrome (2) HTN (hypertension) Goals to Promote Your Health * To prevent worsening of your condition and complications * To maintain your health at the optimal level Directions to Meet Your Goals Take your medications as prescribed Follow your dietary instruction Follow activity as directed Keep your appointments as scheduled Take your immunizations and boosters as scheduled If your symptoms worsen call your PCP, if no PCP go to Urgent Care Center or Emergency Room Smoking is Dangerous to Your Health. Avoid second hand smoke Call the 24-hour hour crisis hotline for domestic abuse at Drake Martinez MD Aug 21, 2016 12:12
[2016-08-21] MEDS ORDERED: MAGNESIUM CITRATE SOLN 300 ML BTL PO ONE (12:15)
[2016-08-21 16:00] VITALS: BP 140/81; PULSE 88; RESP 18; TEMP 97.9; O2SAT 97
[2016-08-21 20:00] VITALS: BP 133/83; PULSE 86; RESP 18; TEMP 97.6; O2SAT 96
[2016-08-21 20:51] LABS: ENTEROVIRUS PCR RESULT Negative (Negative); ENTEROVIRUS PCR SPEC SOURCE CSF (())
[2016-08-21] MEDS: AMITRIPTYLINE HCL 25 MG TAB PO SCH (22:45)
[2016-08-22] VITALS: BP 141/88; PULSE 90; RESP 18; TEMP 98.1; O2SAT 96
[2016-08-22 04:00] VITALS: BP 143/88; PULSE 85; RESP 18; TEMP 98.2; O2SAT 95
[2016-08-22] MEDS: ONDANSETRON HCL 4 MG/2 ML VIAL IV PUSH SCH (07:00)
[2016-08-22 08:00] VITALS: BP 146/93; PULSE 84; RESP 18; TEMP 97.5; O2SAT 97
[2016-08-22] MEDS: METOPROLOL TARTRATE 25 MG TAB PO SCH (09:05)
[2016-08-22] MEDS: PANTOPRAZOLE SOD 20 MG DELAYED RELEASE TAB PO SCH (09:06)
[2016-08-22] MEDS: traMADol HCL 50 MG TAB PO SCH (09:06)
[2016-08-22] MEDS: LISINOPRIL 5 MG TAB PO SCH (09:07)
[2016-08-22] MEDS: NIFEdipine 30 MG SUSTAINED RELEASE TAB PO SCH (09:07)
[2016-08-22] MEDS: HEPARIN SODIUM - SQ 10,000 UNITS/ML VIAL SQ SCH (09:07)
[2016-08-22] MEDS ORDERED: LYRI50CA PO (09:40)
[2016-08-22] MEDS ORDERED: FLEE5TAB PO (09:40)
[2016-08-22] MEDS ORDERED: COLA100C3 PO (09:40)
--- NOTE | 2016-08-22 09:44 | HHI.DS ---
Discharge Summary Admission Date Aug 17, 2016 at 00:38 Discharge Date: Aug 22, 2016 Admitting Diagnosis Weakness, Inability to ambulate (1) Guillain Lowe syndrome Diagnosis: Principal (2) HTN (hypertension) Diagnosis: Secondary Brief History Patient is a pleasant 45-year-old female with history of breast cancer now in remission. Patient presented to [place] with complaint of numbness and tingling in her lower extremities as well as inability to ambulate. The symptoms have worsened over the last 10 days. Initially patient had numbness and tingling bilaterally in her great toes. This numbness progressed to go up to the level of her ankles and then knees. Patient now complains of numbness and tingling also at her hands. Patient denies vision loss no dysphasia no difficulty with word finding. Patient reportedly had outpatient EMG testing which was negative. Patient has been tested for Lyme's disease which is pending. Present symptoms were preceded by Astra enteritis. CBC/BMP: 08/20/16 0752 08/20/16 0752 Significant Findings Laboratory Tests Test 08/20/16 07:52 Monocytes (%) (Auto) 8.7 % (0.0-8.0) Sodium Level 135 MEQ/L (136-145) Hospital Course Pt admitted with GBS after gi illness. Her daughter has CIDP. She had an ascending weakness with Hyporeflexia and stocking-glove paresthesias. Imaging studies do not indicate likely acute infarction Completed ivig x 5 days. overall strength improving. Still with alot of parasthesia pains. meds adjusted per neurology. Neurontin not much help so will try Lyrica. Elavil started at night. She has alot of constipation. mag citrate and lactulose given. colace and dulcolax added. She had alot of bp instability with mostly htn. now controlled on lisinipril and procardia. This might need reduced down as her dz process improves. Pt will be excellent candidate for [facility] and planning d/c today. Pt Condition on Discharge: Stable Discharge Disposition: Rehab Inpatient Discharge Instructions DIET: Follow Instructions for: As Tolerated, No Restrictions Activities you can perform: Regular-No Restrictions Follow up Referrals: Neurology - 2 Weeks @ [facility] with Franck Lee MD New Medications: Bisacodyl (Bisacodyl EC) 5 Mg Tabec 10 MG PO DAILY constipation Days 10 Ref 0 TAB Docusate Sodium (Colace) 100 Mg Cap 100 MG PO BID Constipation #60 Ref 0 CAP Pregabalin (Lyrica) 50 Mg Cap 50 MG PO TID neuropathy Days 30 Ref 0 CAP Amitriptyline HCl (Elavil) 25 Mg Tab 25 MG PO HS parashesia #30 TAB Lisinopril (Lisinopril) 5 Mg Tab 20 MG PO BID htn #60 TAB Nifedipine ER 24 HR (Nifedipine ER 24 HR) 30 Mg Tab 30 MG PO DAILY htn #30 TAB Tramadol (Ultram) 50 Mg Tab 50 MG PO Q8H Pain Management Days 14 TAB Continued Medications: Metoprolol Tartrate (Metoprolol Tartrate) 25 Mg Tab 25 MG PO BID #60 Ref 0 TAB Zolpidem (Ambien) 10 Mg Tab 10 MG PO HS PRN INSOMNIA Ref 0 TAB Discontinued Medications: Ibuprofen (Ibuprofen) 800 Mg Tab 800 MG PO Q6HR PRN PAIN #40 Ref 0 TAB Lisinopril (Lisinopril) 10 Mg Tab 10 MG PO DAILY #30 Ref 0 TAB Drake Martinez MD Aug 22, 2016 09:44
[2016-08-22] MEDS ORDERED: DOCUSATE SODIUM 100 MG CAP PO ONE (11:00)
[2016-08-22] MEDS ORDERED: BISACODYL EC 5 MG TABEC PO ONE (11:00)
[2016-08-22] MEDS ORDERED: PREGABALIN 25 MG CAP PO ONE (11:00)
[2016-08-22 17:52] LABS: VDRL CSF NON-REACTIVE (())
[2016-08-27] MEDS ORDERED: BACT800T5 PO (08:31)
[2016-08-27] MEDS ORDERED: Amitriptyline PO (08:31)
[2016-08-27] MEDS ORDERED: LISI-519 PO (08:31)
[2016-08-27] MEDS ORDERED: DOCU1CAP39 PO (08:31)
[2016-08-27] MEDS ORDERED: METO25TA3 PO (08:31)
[2016-08-27] MEDS ORDERED: LYRI75CA PO (08:31)
== END 2016-08-22 10:55 | DRG 96 ==
LOC: NEPD 16:09 → INTOOBSV 08-17 00:38 → OBSVTOIN 08-17 00:38 → NEDA 08-17 00:38 → NEPHCDU 08-17 02:23 → N05A 08-18 16:02 → OBSVTOIN 08-18 18:02
PROVIDERS: ADMIT Hospitalist; ATTEND Hospitalist
PROC: 009U3ZX Drainage of Spinal Canal, Percutaneous Approach, Diagnostic (ICD-10-PCS; principal; 2016-08-17)
PROC: 30233S1 Transfusion of Nonautologous Globulin into Peripheral Vein, Percutaneous Approach (ICD-10-PCS; 2016-08-17)
DX: G61.0 Guillain-Barre syndrome (principal); R13.10 Dysphagia, unspecified; I10 Essential (primary) hypertension; K59.00 Constipation, unspecified; Z90.13 Acquired absence of bilateral breasts and nipples; Z98.82 Breast implant status; Z85.3 Personal history of malignant neoplasm of breast; Z92.21 Personal history of antineoplastic chemotherapy; Z92.3 Personal history of irradiation
CPT/HCPCS: 62270; 70553; 71010; 72156; 72157; 72158; 80048; 80053; 80074; 80076; 80307; 81001; 82550; 82607; 82945; 83520; 83873; 84157; 84181; 84443; 84703; 85025; 85610; 85652; 85730; 86038; 86403; 86592; 86703; 86788; 87070; 87086; 87205; 87498; 87801; 89051; 93005; A9579; G8987-GP; G8988-GP; J1170; J1459; J1644; J2270; J2405; J7030; J7040; J7060

== ENCOUNTER 2016-09-14 16:13 | Inpatient (IN) | payer OTHER ==
[~2016-09-14] VITALS: Ht 167.6 cm; Wt 79.1 kg
[~2016-09-14 16:13] MED LIST changes: +Amitriptyline PO; +DOCU1CAP39 PO; -HYDR10TA16 PO; +LISI-519 PO; +LYRI75CA PO; +METO25TA3 PO; -Z.0.NO CURRENT MEDS
[2016-09-14 16:15] VITALS: BP 139/90; PULSE 110; RESP 20; TEMP 97.4; O2SAT 96
--- NOTE | 2016-09-14 16:23 | PD ---
Physical Exam Date Seen by Provider: September 14, 2016 Time Seen by Provider: 16:21 Narrative 45 YOWF H/O GB. SENT IN FOR IVIG BY DR STARKEY. SYMPTOMS GETTING WORSE THIS WEEK. THROAT FEELING NUMB LIKE IT IS CLOSING UP. VS NOTED wating for bed asignment Data Data Last Documented VS Vital Signs Date Time Temp Pulse Resp B/P Pulse Ox O2 Delivery O2 Flow Rate FiO2 09/14/16 16:15 97.4 110 20 139/90 96 Room Air [facility] Medical Record Reviewed: No Supervised Visit with CRISTIN: Woody Nevlile September 14, 2016 16:23
--- NOTE | 2016-09-14 16:35 | PD ---
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 She states that over the last 10 days she has experienced numbness and tingling of bilateral lower legs to the thighs and difficulties with ambulation. She endorses multiple falls, even with a walker. She denies urinary or fecal incontinence, but states that she feels numbness and tingling of the skin of the abdomen. Also complains of numbness of the face with "closed throat feeling." Endorses difficulties with swallowing liquids and solid foods. Denies breathing difficulties or shortness of breath. States last bowel movement was 3 days ago. Patient states that when she was discharged from rehabilitation approximately 10 days ago she only had paresthesias in the hands and feet. She is followed by Dr. Carney. COUNT INCLUDES THE [facility] Past Medical History Arthritis: No Asthma: No Autoimmune Disease: Yes (THIS ADMISSION) Blood Disorders: No Anxiety: No Depression: No Heart Rhythm Problems: No Cancer: Yes Cardiovascular Problems: No High Cholesterol: No Chemotherapy: Yes (2002) Chest Pain: No Congestive Heart Failure: No COPD: No Cerebrovascular Accident: Yes Diabetes: No Diminished Hearing: No Endocrine: No GERD: Yes Genitourinary: No Hiatal Hernia: Yes Immune Disorder: No Kidney Stones: No Musculoskeletal: Yes Neurologic: Yes Psychiatric: No Reproductive: No Respiratory: No Migraines: Yes Radiation Therapy: Yes (2002) Renal Failure: No Seizures: No Sickle Cell Disease: No Sleep Apnea: No Thyroid Disease: No Ulcer: No Past Surgical History Abdominal Surgery: No AICD: No Arteriovenous Shunt: No Cardiac Surgery: No Section: Yes Ear Surgery: No Endocrine Surgery: No Eye Surgery: No Genitourinary Surgery: No Gynecologic Surgery: Yes (Partial histerectomy, , double masectomy, L axillary node removal) Hysterectomy: Yes Insulin Pump: No Joint Replacement: No Oral Surgery: Yes (wisdom teeth) Pacemaker: No Thoracic Surgery: No Other Surgery: Yes (APR 11--BILATERAL BREAST RECONSTRUCTION, 09/22/07-RE RECONSTRUCTION L.BREAST) Social History Alcohol Use: Yes ([facility]) Tobacco Use: No Substance Use: No Allergies-Medications (Allergen,Severity, Reaction): Coded Allergies: No Known Allergies (Verified , 08/16/16) Reported Meds & Prescriptions Reported Meds & Active Scripts Active Lyrica (Pregabalin) 75 Mg Cap 75 Mg PO Q8HR [Amitriptyline] 75 MG Tab 75 Mg PO HS Dok (Docusate Sodium) 100 Mg Cap 100 Mg PO BID Lisinopril 5 Mg Tab 20 Mg PO BID Metoprolol Tartrate 25 Mg Tab 25 Mg PO BID Review of Systems Except as stated in HPI: all other systems reviewed are Neg Physical Exam Narrative GENERAL: Well-nourished, well-developed pleasant white female in no acute distress. SKIN: Focused skin assessment warm, diaphoretic HEAD: Normocephalic. EYES: No scleral icterus. No injection or drainage. PERRLA. EOMI. ENT: Oropharynx without erythema, edema or exudate. Airway patent. Uvula midline. NECK: Supple, trachea midline. No JVD or lymphadenopathy. CARDIOVASCULAR: Regular rate and rhythm without murmurs, gallops, or rubs. 2+ DP and radial pulses bilaterally. RESPIRATORY: Breath sounds clear and equal bilaterally. No increased work of breathing. GASTROINTESTINAL: Abdomen soft, non-tender, nondistended. Hypoactive bowel sounds. MUSCULOSKELETAL: No cyanosis, or edema. 3/5 strength in bilateral lower extremities. 4/5 strength in bilateral upper extremities. Diminished reflexes at the knee and ankle bilaterally. Sharp versus dull discrimination diminished to the level of the mid thigh and to the level of the upper humerus bilaterally. Cap refill less than 2 seconds. BACK: Nontender without obvious deformity. No CVA tenderness. Data Data Last Documented VS Vital Signs Date Time Temp Pulse Resp B/P Pulse Ox O2 Delivery O2 Flow Rate FiO2 09/14/16 16:54 96 Room Air 09/14/16 16:15 97.4 110 20 139/90 Orders Immune Globulin Inj (Privigen Inj) (09/14/16 17:00) Complete Blood Count With Diff (09/14/16 16:46) Comprehensive Metabolic Panel (09/14/16 16:46) Urinalysis - C+S If Indicated (09/14/16 16:46) Iv Access Insert/Monitor (09/14/16 16:46) Ecg Monitoring (09/14/16 16:46) Oximetry (09/14/16 16:46) Admit To Inpatient (09/14/16 ) Code Status (09/14/16 17:41) Vital Signs (Adult) Q4H (09/14/16 17:41) Activity Oob With Assistance (09/14/16 17:41) Diet Regular Basic (09/14/16 Dinner) Sodium Chloride 0.9% Flush (Ns Flush) (09/14/16 17:45) Sodium Chloride 0.9% Flush (Ns Flush) (09/14/16 21:00) Acetaminophen (Tylenol) (09/14/16 17:45) Ondansetron Inj (Zofran Inj) (09/14/16 17:45) Magnesium Hydroxide Liq (Milk Of Magnesi (09/14/16 17:45) Basic Metabolic Panel (Bmp) (09/15/16 06:00) Pt Request For Service (09/14/16 17:41) Scd Bilateral/Knee High SHANNON.BID (09/14/16 17:41) Naloxone Inj (Narcan Inj) (09/14/16 17:45) Inpatient Certification (09/14/16 ) Admit Order (Ed Use Only) (09/14/16 17:39) Labs Laboratory Tests Test 09/14/16 16:55 White Blood Count 7.9 TH/MM3 Red Blood Count 5.20 MIL/MM3 Hemoglobin 16.4 GM/DL Hematocrit 47.3 % Mean Corpuscular Volume 90.8 FL Mean Corpuscular Hemoglobin 31.5 PG Mean Corpuscular Hemoglobin 34.7 % Concent Red Cell Distribution Width 12.7 % Platelet Count 238 TH/MM3 Mean Platelet Volume 7.6 FL Neutrophils (%) (Auto) 62.5 % Lymphocytes (%) (Auto) 28.7 % Monocytes (%) (Auto) 4.4 % Eosinophils (%) (Auto) 3.8 % Basophils (%) (Auto) 0.6 % Neutrophils # (Auto) 4.9 TH/MM3 Lymphocytes # (Auto) 2.3 TH/MM3 Monocytes # (Auto) 0.3 TH/MM3 Eosinophils # (Auto) 0.3 TH/MM3 Basophils # (Auto) 0.0 TH/MM3 CBC Comment DIFF FINAL Differential Comment MDM Medical Decision Making Medical Screen Exam Complete: Yes Emergency Medical Condition: Yes Differential Diagnosis Guillain-Lowe versus deconditioning versus paresthesias versus an inability to bear weight versus other Narrative Course 45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 She states that over the last 10 days she has experienced numbness and tingling of bilateral lower legs to the thighs and difficulties with ambulation. She endorses multiple falls, even with a walker. She denies urinary or fecal incontinence, but states that she feels numbness and tingling of the skin of the abdomen. Also complains of numbness of the face with "closed throat feeling." Endorses difficulties with swallowing liquids and solid foods. Denies feeding difficulties or shortness of breath. Patient states that when she was discharged from rehabilitation approximately 10 days ago she only had paresthesias in the hands and feet. She is followed by Dr. Carney. PCP Dr. Orlando. Vitals reviewed. Pulse 110 in triage, 100-103 the exam room. Physical exam reveals a nontoxic-appearing white female in no acute distress. Airway patent, chest is clear to auscultation bilaterally, no extra work of breathing. Hypoactive bowel sounds. Equal pulses in the distal extremities. Diminished strength in the upper and lower extremities. Diminished sharp versus dull discrimination in bilateral upper and lower extremities. Diminished reflexes at the knee and ankle in bilateral lower extremities. Patient was placed on continuous monitoring. IV was established. Basic labs were drawn. I spoke with Dr. Almonte, on-call for Dr. Carney. She recommends IVIG infusion at 0.4 g/kg x 3 days, first dose administered in the ED. I spoke with Dr. Rivas who agrees states that the patient to the medicine service. Please see medicine and neuro notes for disposition. Tonia Ybarra September 14, 2016 16:35
[2016-09-14 16:54] VITALS: O2SAT 96
[2016-09-14] MEDS ORDERED: IMMUNE GLOBULIN INJ 30 GM in SYRINGE/BAG 1 EA IV ONE (17:00)
[2016-09-14 17:23] LABS: AUTOMATED NEUTROPHIL # 4.9 TH/MM3 (1.8-7.7); BASOPHIL % 0.6 % (0.0-2.0); EOSINOPHIL # 0.3 TH/MM3 (0-0.4); EOSINOPHIL % 3.8 % (0.0-4.0); HEMATOCRIT 47.3 % (35.0-46.0); HEMO FLAGS DIFF FINAL; LYMPH % 28.7 % (9.0-44.0); LYMPHOCYTE # 2.3 TH/MM3 (1.0-4.8); MEAN CELL VOLUME 90.8 FL (80.0-100.0); MEAN CORPUSCULAR HEMOGLOBIN 31.5 PG (27.0-34.0); MEAN CORPUSCULAR HGB CONC 34.7 % (32.0-36.0); MONO % 4.4 % (0.0-8.0); NEUT % 62.5 % (16.0-70.0); PLATELET COUNT 238 TH/MM3 (150-450); RED CELL DISTRIBUTION WIDTH 12.7 % (11.6-17.2); WHITE BLOOD COUNT 7.9 TH/MM3 (4.0-11.0)
[2016-09-14] MEDS ORDERED: PREGABALIN 75 MG CAP PO SCH (17:45)
[2016-09-14] MEDS ORDERED: NALOXONE HCL 0.4 MG/ML AMP IV PRN (17:45)
[2016-09-14] MEDS ORDERED: ACETAMINOPHEN 325 MG TAB PO PRN (17:45)
[2016-09-14] MEDS ORDERED: ONDANSETRON HCL 4 MG/2 ML VIAL IVP PRN (17:45)
[2016-09-14] MEDS ORDERED: MAGNESIUM HYDROXIDE SUSP 30 ML CUP PO PRN (17:45)
[2016-09-14] MEDS ORDERED: SODIUM CHLORIDE 0.9% FLUSH 10 ML FLUSH IV FLUSH PRN (17:45)
[2016-09-14 17:51] LABS: ANION GAP 11 MEQ/L (5-15); AST (GOT) 19 U/L (15-37); BICARBONATE 28.9 MEQ/L (21.0-32.0); BLOOD UREA NITROGEN 17 MG/DL (7-18); CHLORIDE 97 MEQ/L (98-107); GLOMERULAR FILTRATION RATE 70 ML/MIN (>89); POTASSIUM 4.1 MEQ/L (3.5-5.1); SODIUM (NA) 137 MEQ/L (136-145)
--- NOTE | 2016-09-14 17:54 | HHI.HP ---
HPI Service [facility] Hospitalists Primary Care Physician Eric Orlando MD Admission Diagnosis Guillain Chester Chief Complaint: LE weakness Travel History International Travel<30 Days: No Contact w/Intl Traveler <30 Da: No Traveled to Known Affected Are: No History of Present Illness Patient is a 45-year-old female previously hospitalized at [place] . Patient was admitted with ascending lower extremity weakness and diagnosed by neurology with Guillain-Lowe. Patient was treated with IVIG for 5 days during that hospitalization with improvement. Patient was subsequently transferred to [facility]. Pt reports that after leaving [place] she was able to ambulate in her home without using her walker at times, but she would steady herself with the wall. However, for the last week her lower extremity weakness has worsened again to the point where she cannot ambulate even using her walker. Case was discussed between the ER physician and neurology. Neurology requested admission for repeat IVIG treatment. Review of Systems Constitutional: DENIES: Diaphoretic episodes, Fatigue, Fever, Weight gain, Weight loss, Chills, Dizziness, Change in appetite, Night Sweats Endocrine: DENIES: Heat/cold intolerance, Polydipsia, Polyuria, Polyphagia Eyes: DENIES: Blurred vision, Diplopia, Eye inflammation, Eye pain, Vision loss , Photosensitivity, Double Vision Ears, nose, mouth, throat: DENIES: Tinnitus, Hearing loss, Vertigo, Nasal discharge, Oral lesions, Throat pain, Hoarseness, Ear Pain, Running Nose, Epistaxis, Sinus Pain, Toothache, Odynophagia Respiratory: DENIES: Apneas, Cough, Snoring, Wheezing, Hemoptysis, Sputum production, Shortness of breath Cardiovascular: DENIES: Chest pain, Palpitations, Syncope, Dyspnea on Exertion , PND, Lower Extremity Edema, Orthopnea, Claudication Gastrointestinal: DENIES: Abdominal pain, Black stools, Bloody stools, BRB per rectum, Constipation, Diarrhea, GERD, Nausea, Reflux, Vomiting, Difficulty Swallowing, Anorexia Genitourinary: COMPLAINS OF: Sexual dysfunction, DENIES: Urinary frequency, Urinary incontinence, Urgency, Hematuria, Dysuria, Nocturia Musculoskeletal: DENIES: Joint pain, Muscle aches, Stiffness, Joint Swelling, Back pain, Neck pain Integumentary: DENIES: Abnormal pigmentation, Pruritus, Rash, Nail changes, Breast masses, Breast skin changes, Nipple discharge Hematologic/lymphatic: DENIES: Bruising, Lymphadenopathy Immunologic/allergic: DENIES: Eczema, Urticaria Neurologic: COMPLAINS OF: Abnormal gait, DENIES: Headache, Localized weakness , Paresthesias, Seizures, Speech Problems, Tremor, Poor Balance Psychiatric: DENIES: Anxiety, Confusion, Mood changes, Depression, Hallucinations, Agitation, Suicidal Ideation, Homicidal Ideation, Delusions, History of Bipolar, History of Schizophrenia Past Family Social History Past Medical History 1) history of breast cancer, left - Status post chemotherapy and radiation therapy 2) hypertension Past Surgical History 1) double mastectomy, December 2006 for cancer of left breast 2) bilateral breast reconstruction, September 2007 Reported Medications Reported Meds & Active Scripts Active Lyrica (Pregabalin) 75 Mg Cap 75 Mg PO Q8HR [Amitriptyline] 75 MG Tab 75 Mg PO HS Dok (Docusate Sodium) 100 Mg Cap 100 Mg PO BID Lisinopril 5 Mg Tab 20 Mg PO BID Metoprolol Tartrate 25 Mg Tab 25 Mg PO BID Allergies: Coded Allergies: No Known Allergies (Verified , 08/16/16) Family History Her daughter has CIDP, unclear relevance. Otherwise noncontributory Social History - No tobacco - No alcohol - No illicit street drugs Physical Exam Vital Signs Vital Signs Date Time Temp Pulse Resp B/P Pulse Ox O2 Delivery O2 Flow Rate FiO2 09/14/16 16:54 96 Room Air 09/14/16 16:15 97.4 110 20 139/90 96 Room Air Physical Exam GENERAL: This is a well-nourished, well-developed patient, in no apparent distress. SKIN: No rashes, ecchymoses or lesions. Cool and dry. HEAD: Atraumatic. Normocephalic. No temporal or scalp tenderness. EYES: Pupils equal round and reactive. Extraocular motions intact. No scleral icterus. No injection or drainage. ENT: Nose without bleeding, purulent drainage or septal hematoma. Throat without erythema, tonsillar hypertrophy or exudate. Uvula midline. Airway patent. NECK: Trachea midline. No JVD or lymphadenopathy. Supple, nontender, no meningeal signs. CARDIOVASCULAR: Regular rate and rhythm without murmurs, gallops, or rubs. RESPIRATORY: Clear to auscultation. Breath sounds equal bilaterally. No wheezes , rales, or rhonchi. GASTROINTESTINAL: Abdomen soft, non-tender, nondistended. No hepato-splenomegaly , or palpable masses. No guarding. MUSCULOSKELETAL: Extremities without clubbing, cyanosis, or edema. No joint tenderness, effusion, or edema noted. No calf tenderness. Negative Homans sign bilaterally. NEUROLOGICAL: Pt noted to have LE weakness and unable to lift legs off the bed. Muscle strength at upper extremities appears in tact and symmetrical. Laboratory Laboratory Tests Test 09/14/16 16:55 White Blood Count 7.9 Red Blood Count 5.20 Hemoglobin 16.4 Hematocrit 47.3 Mean Corpuscular Volume 90.8 Mean Corpuscular Hemoglobin 31.5 Mean Corpuscular Hemoglobin 34.7 Concent Red Cell Distribution Width 12.7 Platelet Count 238 Mean Platelet Volume 7.6 Neutrophils (%) (Auto) 62.5 Lymphocytes (%) (Auto) 28.7 Monocytes (%) (Auto) 4.4 Eosinophils (%) (Auto) 3.8 Basophils (%) (Auto) 0.6 Neutrophils # (Auto) 4.9 Lymphocytes # (Auto) 2.3 Monocytes # (Auto) 0.3 Eosinophils # (Auto) 0.3 Basophils # (Auto) 0.0 CBC Comment DIFF FINAL Differential Comment Sodium Level 137 Potassium Level 4.1 Chloride Level 97 Carbon Dioxide Level 28.9 Anion Gap 11 Blood Urea Nitrogen 17 Creatinine 0.87 Estimat Glomerular Filtration 70 Rate Random Glucose 109 Calcium Level 9.7 Aspartate Amino Transf 19 (AST/SGOT) Albumin 4.0 Result Diagram: 09/14/16 1655 09/14/16 1655 Septic Shock Reassessment Heart: Regular rate and rhythm Lungs: Clear Skin: Warm Peripheral Pulses: Bounding Right Radial Bounding Left Radial Bounding Right Popliteal Bounding Left Popliteal Bounding Right Dorsalis Pedis Bounding Left Dorsalis Pedis Bounding Right Posterior Tibial Bounding Left Posterior Tibial Capillary Refill: Brisk Assessment and Plan Problem List: (1) Guillain Lowe syndrome Status: Acute Plan: - previous hospitalization with similar symptoms 08/17 - 08/22 at which time patient was treated with IVIG by neurology and then discharged to [facility] - Case discussed with neurology, will administer IVIG daily for 5 days - Await neurology consultation - Physical therapy - Continue Lyrica and Elavil (2) HTN (hypertension) Status: Acute Plan: - Continue lisinopril and metoprolol Physician Certification 2 Midnight Certification Type: Admission for Inpatient Services Order for Inpatient Services The services are ordered in accordance with Medicare regulations or non- Medicare payer requirements, as applicable. In the case of services not specified as inpatient-only, they are appropriately provided as inpatient services in accordance with the 2-midnight benchmark. Estimated LOS (days): 3 3 days is the estimated time the patient will need to remain in the hospital, assuming treatment plan goals are met and no additional complications. Post-Hospital Plan: Not yet determined Problem Qualifiers (1) HTN (hypertension): Qualified Code: I10 - Essential hypertension Werner Rivas DO September 14, 2016 17:54
[2016-09-14 17:55] LABS: ALKALINE PHOSPHATASE 102 U/L (45-117); ALT (GPT) 32 U/L (10-53); TOTAL BILIRUBIN ADULT 0.5 MG/DL (0.2-1.0)
[2016-09-14] MEDS ORDERED: diphenhydrAMINE HCL 50 MG/ML VIAL IVP ONE (18:00)
[2016-09-14] MEDS ORDERED: ACETAMINOPHEN 325 MG/10.15 ML UDC PO ONE (18:00)
[2016-09-14 19:37] VITALS: BP 122/79; PULSE 110; RESP 18; O2SAT 96
[2016-09-14] MEDS: 1/2 NS + KCL 20 MEQ INJ 1,000 ML IV SCH (19:54)
[2016-09-14 20:30] VITALS: BP 114/89; PULSE 101; RESP 14; TEMP 99.3; O2SAT 95
[2016-09-14] MEDS: SODIUM CHLORIDE 0.9% FLUSH 10 ML FLUSH IV FLUSH SCH (21:00)
[2016-09-14] MEDS ORDERED: DOCUSATE SODIUM 100 MG PO SCH (21:00)
[2016-09-14] MEDS ORDERED: AMITRIPTYLINE HCL 75 MG PO SCH (21:00)
[2016-09-14] MEDS ORDERED: AMITRIPTYLINE 150 MG PO SCH (21:00)
[2016-09-14] MEDS: DOCUSATE SODIUM 100 MG CAP PO SCH (21:46)
[2016-09-14] MEDS: METOPROLOL TARTRATE 25 MG TAB PO SCH (21:46)
[2016-09-14] MEDS: LISINOPRIL 20 MG TAB PO SCH (21:46)
[2016-09-14 22:00] VITALS: PULSE 97
[2016-09-14] MEDS: PREGABALIN 100 MG CAP PO SCH (22:05)
[2016-09-14] MEDS: AMITRIPTYLINE HCL 75 MG TAB PO SCH (22:05)
[2016-09-15] VITALS (19 sets, daily range): BP systolic 108–139; BP diastolic 63–91; PULSE 81–110; RESP 13–20; TEMP 97.7–100.6; O2SAT 94–98
[2016-09-15] MEDS: PREGABALIN 100 MG CAP PO SCH ×3 (06:02→22:17)
[2016-09-15] MEDS: 1/2 NS + KCL 20 MEQ INJ 1,000 ML IV SCH ×2 (06:03→17:15)
[2016-09-15 06:11] LABS: BICARBONATE 26.2 MEQ/L (21.0-32.0)
[2016-09-15] MEDS: DOCUSATE SODIUM 100 MG CAP PO SCH ×2 (08:54→21:19)
[2016-09-15] MEDS: LISINOPRIL 20 MG TAB PO SCH ×2 (08:54→21:19)
[2016-09-15] MEDS: METOPROLOL TARTRATE 25 MG TAB PO SCH ×2 (08:54→21:19)
[2016-09-15] MEDS: SODIUM CHLORIDE 0.9% FLUSH 10 ML FLUSH IV FLUSH SCH ×2 (08:55→21:20)
[2016-09-15] MEDS ORDERED: INFLUENZA VIRUS VACCINE (QUADRIVALENT) 0.5 ML SYR IM ONE (10:00)
--- NOTE | 2016-09-15 13:14 | HHI.PR ---
Subjective Remarks Pt c/o continued LE weakness. Objective Vitals Vital Signs Date Time Temp Pulse Resp B/P Pulse Ox O2 Delivery O2 Flow Rate FiO2 09/15/16 12:00 98.5 86 16 123/73 97 09/15/16 12:00 88 09/15/16 10:00 81 09/15/16 08:00 98.1 86 16 113/66 94 09/15/16 08:00 87 09/15/16 06:00 86 09/15/16 04:00 90 09/15/16 04:00 99.2 88 13 108/68 94 09/15/16 02:00 85 09/15/16 00:00 83 09/15/16 00:00 99.1 83 16 114/76 95 09/14/16 22:00 97 09/14/16 20:30 99.3 101 14 114/89 95 09/14/16 19:37 110 18 122/79 96 Room Air 09/14/16 16:54 96 Room Air 09/14/16 16:15 97.4 110 20 139/90 96 Room Air 09/14/16 09/14/16 09/15/16 15:00 23:00 07:00 Intake Total 743 ml 593 ml Output Total 0 ml 200 ml Balance 743 ml 393 ml Intake Oral 240 ml 120 ml IV Total 503 ml 473 ml Output Urine Total 0 ml 200 ml # Bowel Movements 0 0 Result Diagram: 09/14/16 1655 09/15/16 0447 Objective Remarks GENERAL: This is a well-nourished, well-developed patient, in no apparent distress. CARDIOVASCULAR: Regular rate and rhythm without murmurs, gallops, or rubs. RESPIRATORY: Clear to auscultation. Breath sounds equal bilaterally. No wheezes , rales, or rhonchi. GASTROINTESTINAL: Abdomen soft, non-tender, nondistended. Normal active bowel sounds MUSCULOSKELETAL: Extremities without clubbing, cyanosis, or edema. NEURO: Alert & Oriented x3, b/l LE weakness A/P Problem List: (1) Guillain Lowe syndrome Status: Acute Plan: - previous hospitalization with similar symptoms 08/17 - 08/22 at which time patient was treated with IVIG by neurology and then discharged to [facility] - Case discussed with neurology, will administer IVIG daily for 5 days, completes 09/18/16 - Await neurology consultation - Physical therapy - Continue Lyrica and Elavil (2) HTN (hypertension) Status: Acute Plan: - Continue lisinopril and metoprolol Problem Qualifiers (1) HTN (hypertension): Qualified Code: I10 - Essential hypertension Werner Rivas DO September 15, 2016 13:14
[2016-09-15] MEDS: NS 500 ML Pre-hydration IV SCH (15:59)
[2016-09-15] MEDS: DIPHENHYDRAMINE HCL 25 MG CAP Pre-med PO SCH (15:59)
[2016-09-15] MEDS: ACETAMINOPHEN 325 MG TAB Pre-med PO SCH (15:59)
[2016-09-15] MEDS ORDERED: EPINEPHRINE HCL (1:1000) 1 MG/ML AMP Reaction Med OTHER PRN (16:00)
[2016-09-15] MEDS ORDERED: DIPHENHYDRAMINE HCL 50 MG/ML VIAL Reaction Med IV PUSH PRN (16:00)
[2016-09-15] MEDS: D5W as prime bag (IVIG as secondary) IV SCH (17:50)
[2016-09-15] MEDS: IMMUNE GLOBULIN INJ 30 GM in SYRINGE/BAG 1 EA IV SCH (17:50)
[2016-09-15] MEDS: AMITRIPTYLINE HCL 75 MG TAB PO SCH (22:17)
[2016-09-16] VITALS (8 sets, daily range): BP systolic 102–135; BP diastolic 61–89; PULSE 85–116; RESP 16–20; TEMP 97.5–98.8; O2SAT 94–98
[2016-09-16] MEDS: PREGABALIN 100 MG CAP PO SCH ×3 (05:07→21:03)
[2016-09-16] MEDS: METOPROLOL TARTRATE 25 MG TAB PO SCH ×2 (09:47→21:03)
[2016-09-16] MEDS: DOCUSATE SODIUM 100 MG CAP PO SCH ×2 (09:47→21:03)
[2016-09-16] MEDS: LISINOPRIL 20 MG TAB PO SCH ×2 (09:47→21:03)
[2016-09-16] MEDS: SODIUM CHLORIDE 0.9% FLUSH 10 ML FLUSH IV FLUSH SCH ×2 (09:47→21:04)
--- NOTE | 2016-09-16 13:33 | HHI.PR ---
Subjective Remarks Pt reports that LEs are stronger today and she is again able to ambulate in the room with her walker, but feels unsteady. Objective Vitals Vital Signs Date Time Temp Pulse Resp B/P Pulse Ox O2 Delivery O2 Flow Rate FiO2 09/16/16 12:00 98.1 85 16 102/61 95 09/16/16 08:30 Room Air 09/16/16 08:10 91 09/16/16 08:00 97.5 89 16 123/70 95 09/16/16 04:00 98.0 92 18 110/68 94 09/16/16 00:00 98.8 95 18 134/89 95 09/15/16 22:45 98.8 95 134/89 95 09/15/16 21:45 98.2 109 117/81 95 09/15/16 20:50 110 09/15/16 20:45 98.5 108 108/76 95 09/15/16 20:00 Room Air 09/15/16 20:00 98.5 108 20 108/76 95 09/15/16 19:45 97.7 110 121/80 94 09/15/16 18:30 98.3 110 16 120/63 95 09/15/16 18:15 98.4 110 16 112/66 96 09/15/16 18:00 98.3 103 16 122/70 96 09/15/16 17:52 Room Air 09/15/16 17:45 98.3 95 16 139/91 98 09/15/16 16:00 93 09/15/16 14:00 88 09/15/16 09/15/16 09/16/16 15:00 23:00 07:00 Intake Total 1075 ml 1220 ml Output Total 1200 ml Balance -125 ml 1220 ml Intake Oral 550 ml 720 ml IV Total 525 ml 500 ml Output Urine Total 1200 ml # Voids 3 # Bowel Movements 0 Result Diagram: 09/14/16 1655 09/15/16 0447 Objective Remarks GENERAL: This is a well-nourished, well-developed patient, in no apparent distress. CARDIOVASCULAR: Regular rate and rhythm without murmurs, gallops, or rubs. RESPIRATORY: Clear to auscultation. Breath sounds equal bilaterally. No wheezes , rales, or rhonchi. GASTROINTESTINAL: Abdomen soft, non-tender, nondistended. Normal active bowel sounds MUSCULOSKELETAL: Extremities without clubbing, cyanosis, or edema. NEURO: Alert & Oriented x3, b/l LE weakness A/P Problem List: (1) Guillain Lowe syndrome Status: Acute Plan: - previous hospitalization with similar symptoms 08/17 - 08/22 at which time patient was treated with IVIG by neurology and then discharged to [facility] - Case discussed with neurology, will administer IVIG daily for 5 days, completes 09/18/16 - Await neurology consultation - Physical therapy - Continue Lyrica and Elavil 09/16/16 - pt interviewed and examined - continue treatment plan as outlined above. (2) HTN (hypertension) Status: Acute Plan: - Continue lisinopril and metoprolol Problem Qualifiers (1) HTN (hypertension): Qualified Code: I10 - Essential hypertension Werner Rivas DO September 16, 2016 13:33
[2016-09-16] MEDS: NS 500 ML Pre-hydration IV SCH (16:10)
[2016-09-16] MEDS: DIPHENHYDRAMINE HCL 25 MG CAP Pre-med PO SCH (18:04)
[2016-09-16] MEDS: ACETAMINOPHEN 325 MG TAB Pre-med PO SCH (18:04)
[2016-09-16] MEDS: IMMUNE GLOBULIN INJ 30 GM in SYRINGE/BAG 1 EA IV SCH (18:38)
[2016-09-16] MEDS: D5W as prime bag (IVIG as secondary) IV SCH (18:39)
[2016-09-16] MEDS: AMITRIPTYLINE HCL 75 MG TAB PO SCH (21:04)
[2016-09-17] VITALS (14 sets, daily range): BP systolic 102–168; BP diastolic 62–98; PULSE 58–115; RESP 18–20; TEMP 97.4–98.9; O2SAT 95–98
[2016-09-17] MEDS: PREGABALIN 100 MG CAP PO SCH ×3 (05:24→22:05)
[2016-09-17] MEDS ORDERED: NS 500 ML Pre-hydration IV SCH (08:30)
[2016-09-17] MEDS ORDERED: DIPHENHYDRAMINE HCL 25 MG CAP Pre-med PO SCH (08:30)
[2016-09-17] MEDS ORDERED: ACETAMINOPHEN 325 MG TAB Pre-med PO SCH (08:30)
[2016-09-17] MEDS: LISINOPRIL 20 MG TAB PO SCH ×2 (09:50→22:05)
[2016-09-17] MEDS: SODIUM CHLORIDE 0.9% FLUSH 10 ML FLUSH IV FLUSH SCH ×2 (09:51→21:00)
[2016-09-17] MEDS: METOPROLOL TARTRATE 25 MG TAB PO SCH ×2 (09:51→22:06)
[2016-09-17] MEDS: DOCUSATE SODIUM 100 MG CAP PO SCH ×3 (09:51→22:05)
--- NOTE | 2016-09-17 12:03 | MB ---
cc: ANN MARIE BOLIVAR M.D. DATE OF CONSULTATION: 09/17/2016 1970 REASON FOR CONSULTATION Guillain-Littleton syndrome. 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 However, was not back to baseline, would steady herself with a walker and also using a wall. She has not followed up in the office thus far. She comes in because for the last week her weakness has gotten worse to the point where she is not stable with a walker and her hands are not coordinated as far as simple tasks as pressing down, opening up an item. She still states that she has hyperesthesia in the legs. She denies that she has had any falls. PAST MEDICAL HISTORY She has a significant past medical history of: 1. Breast cancer status post chemotherapy and radiation, left breast. 2. History of hypertension. 3. Double mastectomy in December 2006 and 4. Breast reconstruction in 2007. MEDICATION Her home medicines: 1. Lyrica. 2. Amitriptyline. 3. Colace. 4. Lisinopril. 5. Metoprolol. ALLERGIES None reported. FAMILY HISTORY Interestingly enough, her daughter has CIDP. 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 She does not smoke, drink or use any drugs. PHYSICAL EXAMINATION VITAL SIGNS: Temperature is 97.4, pulse 60, respiratory rate 20, blood pressure 137/69. NEURO EXAM: She is awake and alert. She is fluent. Her pupils are reactive. Extraocular muscles are intact. There is no ptosis. She does not have abnormalities with her voice. She does not have any trouble swallowing. Motor strength in her upper extremities, she is slightly weaker in the right compared to the left best at 4/5. Professor Of Theology are 3/5. Her dexterity fine motor movements in her hands are decreased. Reflexes are trace in the upper extremities. Lower extremity strength at best is 4/5. However, slightly weaker on the right side as well. There is no foot drop observed. She can dorsiflex both ankles but has difficulty maintaining strength in both ankles. She states that when she ambulates her right foot deviates laterally externally. Reflexes are absent in her lower extremities and sensory is hyperesthetic to light touch and noxious stimuli. Cerebellar is normal. Gait is withheld, defer to PT. LABORATORY DATA Looking at her lab work, her hemoglobin on admission was 16.4, and her hematocrit is 47.3, the rest of the CBC was unremarkable. On admission on August 17, her sed rate is 9. Coag panel was unremarkable. Chemistries on the , BUN 19, GFR is 85. Her thyroid panel was normal. Her B12 was 576. Urine at that point was unremarkable. Toxicology was unremarkable. Spinal tap performed showed 90.9 protein, glucose 59, all the other workup immunology-cunningham, serology-cunningham were negative. She did have cytology as well. No malignant cells. IMAGING STUDIES She had complete imaging of the neuro axis. MRI of the brain showed few tiny high signal spots in the white matter suggesting ischemic change. Cervical spine MRI showed some bulging disc but no cord signal abnormality. Lumbar spine showed some bulging as well. Thoracic spine bulging at T9-10 and again no cord abnormality. IMPRESSION 45-year-old woman with what looks like a Guillain-Littleton syndrome. Either she has not improved or symptoms are progressing. 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 I would recommend continue her IVIG current dose, 5 days. If she has no improvement recommend starting some plasma exchange. Will add some steroids to the regimen as well. Continue physical therapy. Continue Lyrica and Elavil. She has some constipation, start her on a bowel regimen. She has not had a bowel movement since September 13. She will need an EMG nerve conduction study to better delineate her neuropathy. This should be done with Dr. Lee in the office. She does have a followup I believe she told me on the of this month. Further recommendations will be made as needed. MD ANNA Ortiz/SHAYY /11:15 AM /11:35 AM
[2016-09-17] MEDS ORDERED: EPINEPHRINE HCL (1:1000) 1 MG/ML AMP Reaction Med OTHER PRN (12:15)
[2016-09-17] MEDS ORDERED: DIPHENHYDRAMINE HCL 50 MG/ML VIAL Reaction Med IV PUSH PRN (12:15)
[2016-09-17] MEDS: POLYETHYLENE GLYCOL 17 GM PKG PO SCH (12:29)
--- NOTE | 2016-09-17 13:02 | HHI.PR ---
Subjective Remarks still with lower ext weakness with right foot worse Objective Vitals heart reg lung cta abd s/nt ext no edema Vital Signs Date Time Temp Pulse Resp B/P Pulse Ox O2 Delivery O2 Flow Rate FiO2 09/17/16 08:00 97.4 60 20 137/69 96 09/17/16 08:00 Room Air 09/17/16 05:39 58 168/95 09/17/16 04:00 98.2 84 20 107/65 96 09/17/16 00:00 97.9 80 20 102/62 96 09/16/16 22:00 98.8 110 20 135/72 98 09/16/16 21:05 98.7 116 129/68 96 09/16/16 20:00 Room Air 09/16/16 16:00 98.7 106 16 128/77 96 09/16/16 09/16/16 09/17/16 15:00 23:00 07:00 Intake Total 1020 ml 380 ml 948 ml Balance 1020 ml 380 ml 948 ml Intake Oral 1020 ml 380 ml IV Total 948 ml # Voids 3 1 # Bowel Movements 0 0 Result Diagram: 09/14/16 1655 09/15/16 0447 A/P Problem List: (1) Guillain Lowe syndrome Status: Acute Plan: Pt recently admitted with ascending paralysis, high prot in csf, areflexia lower ext's and dx of GBS She improved with ivig and sent to [place]. also had some autonomic instabilility and htn. constipated. 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 discussed with neurology cont ivig today 4/5 start solumedrol if no improvement then plasmapheresis laxatives. (2) HTN (hypertension) Status: Acute Plan: - Continue lisinopril and metoprolol Problem Qualifiers (1) HTN (hypertension): Qualified Code: I10 - Essential hypertension Drake Martinez MD September 17, 2016 13:01
[2016-09-17] MEDS: NS 500 ML Pre-hydration IV SCH (16:07)
[2016-09-17] MEDS: DIPHENHYDRAMINE HCL 25 MG CAP Pre-med PO SCH (16:08)
[2016-09-17] MEDS: ACETAMINOPHEN 325 MG TAB Pre-med PO SCH (16:08)
[2016-09-17] MEDS: D5W as prime bag (IVIG as secondary) IV SCH (17:00)
[2016-09-17 17:07] LABS: BACTERIA, URINE RARE /hpf; BLOOD, URINE NEG (NEG); COMMENT (UR) CULT NOT INDICATED; CULTURE IF INDICATED CULT NOT INDICATED; GLUCOSE,URINE NEG (NEG); KETONE, URINE NEG (NEG); NITRITE,URINE NEG (NEG); URINE COLOR LIGHT-YELLOW (YELLW/STRAW)
[2016-09-17] MEDS: IMMUNE GLOBULIN INJ 30 GM in SYRINGE/BAG 1 EA IV SCH (17:40)
--- NOTE | 2016-09-17 21:03 | RADRPT ---
EXAM DATE/TIME: 09/17/2016 20:50 [facility] COMPARISON: No previous studies available for comparison. INDICATIONS : Left knee pain after fall. MEDICAL HISTORY : None. SURGICAL HISTORY : None. ENCOUNTER: Initial ACUITY: 1 day PAIN SCORE: 10/10 LOCATION: Left knee. FINDINGS: Two view examination of the left knee demonstrates no evidence of fracture or dislocation. Mild osteo arthritis. Bony mineralization is normal. The suprapatellar soft tissues have a normal configuratio n. CONCLUSION: Mild osteoarthritis without fracture. Jayy Yost MD on September 17, 2016 at 21:01 Board Certified Radiologist. This report was verified electronically.
--- NOTE | 2016-09-17 21:04 | RADRPT ---
EXAM DATE/TIME: 09/17/2016 20:51 [facility] COMPARISON: No previous studies available for comparison. INDICATIONS : Left foot pain after fall. MEDICAL HISTORY : None. SURGICAL HISTORY : None. ENCOUNTER: Initial ACUITY: 1 day PAIN SCORE: 10/10 LOCATION: Left foot. FINDINGS: Two view examination of the left foot demonstrates no soft tissue swelling, dislocation, or fracture. The calcaneus is intact. Bony mineralization is normal. CONCLUSION: No acute fracture. Jayy Yost MD on September 17, 2016 at 21:01 Board Certified Radiologist. This report was verified electronically.
[2016-09-17] MEDS: AMITRIPTYLINE HCL 75 MG TAB PO SCH (22:06)
[2016-09-17] MEDS ORDERED: traMADol HCL 50 MG TAB PO PRN (22:45)
[2016-09-18] VITALS (11 sets, daily range): BP systolic 121–151; BP diastolic 69–94; PULSE 84–115; RESP 16–21; TEMP 97–98.6; O2SAT 95–98
[2016-09-18] MEDS: PREGABALIN 100 MG CAP PO SCH ×3 (06:24→22:43)
[2016-09-18] MEDS ORDERED: methylPREDNISolone SOD SUCC 125 MG/2 ML VIAL IM SCH (09:00)
[2016-09-18] MEDS: METOPROLOL TARTRATE 25 MG TAB PO SCH ×2 (09:30→22:43)
[2016-09-18] MEDS: DOCUSATE SODIUM 100 MG CAP PO SCH ×2 (09:30→22:42)
[2016-09-18] MEDS: POLYETHYLENE GLYCOL 17 GM PKG PO SCH (09:30)
[2016-09-18] MEDS: LISINOPRIL 20 MG TAB PO SCH ×2 (09:30→22:43)
[2016-09-18] MEDS: methylPREDNISolone SOD SUCC 125 MG/2 ML VIAL IV PUSH SCH (09:30)
[2016-09-18] MEDS: SODIUM CHLORIDE 0.9% FLUSH 10 ML FLUSH IV FLUSH SCH ×2 (09:31→22:44)
--- NOTE | 2016-09-18 11:35 | HHI.PR ---
Subjective Remarks says she fell again yesterday. strength about the same had small bm Objective Vitals heart reg lung cta abd s/nt ext no edema no reflexes lower ext. able to plantar/dorsiflex marquise hip/knee flexion/ext intact Vital Signs Date Time Temp Pulse Resp B/P Pulse Ox O2 Delivery O2 Flow Rate FiO2 09/18/16 04:00 Room Air 09/18/16 04:00 97.9 84 18 121/75 97 09/18/16 00:00 Room Air 09/18/16 00:00 98.3 115 20 130/78 98 09/17/16 22:00 98.3 102 20 149/92 98 09/17/16 22:00 Room Air 09/17/16 21:15 Room Air 09/17/16 21:15 98.7 87 20 122/98 96 09/17/16 20:20 Room Air 09/17/16 20:20 98.9 92 18 137/81 96 09/17/16 20:00 97.7 115 20 152/98 97 09/17/16 20:00 Room Air 09/17/16 19:15 98.1 88 18 130/90 09/17/16 18:15 98.0 86 18 120/80 09/17/16 18:00 98.2 86 18 120/80 97 09/17/16 17:45 98.0 88 18 110/80 98 09/17/16 17:08 18 09/17/16 16:00 98.3 97 20 120/77 95 09/17/16 13:33 18 09/17/16 12:00 97.7 86 20 131/72 97 09/17/16 09/17/16 09/18/16 15:00 23:00 07:00 Intake Total 480 ml 558 ml 0 ml Output Total 900 ml Balance -420 ml 558 ml 0 ml Intake Oral 480 ml 0 ml 0 ml IV Total 558 ml Output Urine Total 900 ml # Voids 2 2 # Bowel Movements 0 1 0 Result Diagram: 09/14/16 4625 09/15/16 4657 A/P Problem List: (1) Guillain Lowe syndrome Status: Acute Plan: Pt recently admitted with ascending paralysis, high prot in csf, areflexia lower ext's and dx of GBS She improved with ivig and sent to [place]. also had some autonomic instabilility and htn. constipated. 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 discussed with neurology cont ivig ....today 09/07 start solumedrol if no improvement then plasmapheresis laxatives. PT daily. might need rehab again. (2) HTN (hypertension) Status: Acute Plan: - Continue lisinopril and metoprolol Problem Qualifiers (1) HTN (hypertension): Qualified Code: I10 - Essential hypertension Drake Martinez MD September 18, 2016 11:35
[2016-09-18] MEDS: NS 500 ML Pre-hydration IV SCH (16:00)
[2016-09-18] MEDS: DIPHENHYDRAMINE HCL 25 MG CAP Pre-med PO SCH (16:03)
[2016-09-18] MEDS: ACETAMINOPHEN 325 MG TAB Pre-med PO SCH (16:03)
[2016-09-18] MEDS: D5W as prime bag (IVIG as secondary) IV SCH (17:00)
[2016-09-18] MEDS: IMMUNE GLOBULIN INJ 30 GM in SYRINGE/BAG 1 EA IV SCH (18:15)
[2016-09-18] MEDS: AMITRIPTYLINE HCL 75 MG TAB PO SCH (22:43)
[2016-09-19 05:34] VITALS: BP 139/73; PULSE 83; RESP 16; TEMP 97.6; O2SAT 96
[2016-09-19] MEDS: PREGABALIN 100 MG CAP PO SCH ×3 (05:57→21:33)
[2016-09-19 08:00] VITALS: BP 146/76; PULSE 80; RESP 18; TEMP 97.8; O2SAT 96
[2016-09-19] MEDS: methylPREDNISolone SOD SUCC 125 MG/2 ML VIAL IV PUSH SCH (09:42)
[2016-09-19] MEDS: SODIUM CHLORIDE 0.9% FLUSH 10 ML FLUSH IV FLUSH SCH ×2 (09:43→21:32)
[2016-09-19] MEDS: METOPROLOL TARTRATE 25 MG TAB PO SCH ×2 (09:43→21:33)
[2016-09-19] MEDS: DOCUSATE SODIUM 100 MG CAP PO SCH ×2 (09:43→21:32)
[2016-09-19] MEDS: LISINOPRIL 20 MG TAB PO SCH ×2 (09:43→21:33)
[2016-09-19] MEDS: POLYETHYLENE GLYCOL 17 GM PKG PO SCH (09:43)
--- NOTE | 2016-09-19 11:20 | PD.PN.STU ---
Subjective Remarks Patient is a 45 year old female with recent bout of Guillain-[place] Syndrome who was readmitted 09/14 with relapse of symptoms. Has noticed some improvement with IVIG and steroid therapy. No new symptoms today. Has been constipated since admission. Small bowel movement last night. On meds. 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 Vital Signs Date Time Temp Pulse Resp B/P Pulse Ox O2 Delivery O2 Flow Rate FiO2 09/19/16 08:00 97.8 80 18 146/76 96 09/19/16 05:34 97.6 83 16 139/73 96 09/19/16 05:34 Room Air 09/18/16 23:44 98.2 88 16 134/79 96 09/18/16 23:24 Room Air 09/18/16 22:20 98.1 99 18 137/83 98 09/18/16 22:20 Room Air 09/18/16 21:30 Room Air 09/18/16 21:30 98.1 104 16 121/78 95 09/18/16 20:15 98.5 101 20 138/91 97 09/18/16 20:15 Room Air 09/18/16 19:15 97.6 108 21 132/79 96 09/18/16 19:15 Room Air 09/18/16 18:45 98.6 102 20 126/69 09/18/16 18:45 98.6 106 20 130/74 09/18/16 16:00 98.2 110 18 151/94 98 09/18/16 12:00 98.4 88 18 138/86 96 I/O 09/18/16 09/18/16 09/18/16 09/19/16 09/19/16 09/19/16 07:00 15:00 23:00 07:00 15:00 23:00 Intake Total 0 ml 480 ml 645 ml 0 ml Balance 0 ml 480 ml 645 ml 0 ml Intake Oral 0 ml 480 ml 240 ml 0 ml IV Total 405 ml # Voids 2 2 1 1 # Bowel Movements 0 0 1 0 Result Diagram: 09/15/16 0447 A/P Assessment and Plan (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 (2) Constipation Plan: Likely related to neuropathy Continue Miralax and ColSelwyn Macias M3 September 19, 2016 11:20
[2016-09-19 12:00] VITALS: BP 138/86; PULSE 85; RESP 18; TEMP 97.7; O2SAT 98
--- NOTE | 2016-09-19 12:25 | HHI.PR ---
Subjective Remarks feeling stronger and less parasthesia rle ambulated better with PT yesterday. Objective Vitals heart reg lung cta abd s/nt ext no edema Vital Signs Date Time Temp Pulse Resp B/P Pulse Ox O2 Delivery O2 Flow Rate FiO2 09/19/16 08:00 97.8 80 18 146/76 96 09/19/16 05:34 97.6 83 16 139/73 96 09/19/16 05:34 Room Air 09/18/16 23:44 98.2 88 16 134/79 96 09/18/16 23:24 Room Air 09/18/16 22:20 98.1 99 18 137/83 98 09/18/16 22:20 Room Air 09/18/16 21:30 Room Air 09/18/16 21:30 98.1 104 16 121/78 95 09/18/16 20:15 98.5 101 20 138/91 97 09/18/16 20:15 Room Air 09/18/16 19:15 97.6 108 21 132/79 96 09/18/16 19:15 Room Air 09/18/16 18:45 98.6 102 20 126/69 09/18/16 18:45 98.6 106 20 130/74 09/18/16 16:00 98.2 110 18 151/94 98 09/18/16 09/18/16 09/19/16 15:00 23:00 07:00 Intake Total 480 ml 645 ml 0 ml Balance 480 ml 645 ml 0 ml Intake Oral 480 ml 240 ml 0 ml IV Total 405 ml # Voids 2 1 1 # Bowel Movements 0 1 0 Result Diagram: 09/15/16 0447 A/P Problem List: (1) Guillain Lowe syndrome Status: Acute Plan: Pt recently admitted with ascending paralysis, high prot in csf, areflexia lower ext's and dx of GBS She improved with ivig and sent to [place]. also had some autonomic instabilility and htn. constipated. 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 somewhat improved today. discussed with neurology finished 09/07 ivig on solumedrol if no improvement then plasmapheresis laxatives. PT daily. progressing and pt will want to go home has neuro f/u 09/27 (2) HTN (hypertension) Status: Acute Plan: - Continue lisinopril and metoprolol Problem Qualifiers (1) HTN (hypertension): Qualified Code: I10 - Essential hypertension Drake Martinez MD September 19, 2016 12:25
[2016-09-19 16:00] VITALS: BP 123/76; PULSE 100; RESP 16; TEMP 98.1; O2SAT 96
[2016-09-19 20:00] VITALS: BP 123/60; PULSE 103; RESP 18; TEMP 97.8; O2SAT 95
[2016-09-19] MEDS: AMITRIPTYLINE HCL 75 MG TAB PO SCH (21:33)
[2016-09-20] VITALS: BP 113/70; PULSE 88; RESP 18; TEMP 98.1; O2SAT 96
[2016-09-20 04:00] VITALS: BP 124/70; PULSE 79; RESP 18; TEMP 97.6; O2SAT 96
[2016-09-20] MEDS: PREGABALIN 100 MG CAP PO SCH ×3 (06:03→20:42)
[2016-09-20 07:52] VITALS: BP 138/83; PULSE 80; RESP 18; TEMP 98.1; O2SAT 98
[2016-09-20] MEDS: SODIUM CHLORIDE 0.9% FLUSH 10 ML FLUSH IV FLUSH SCH ×2 (09:00→20:43)
[2016-09-20] MEDS: METOPROLOL TARTRATE 25 MG TAB PO SCH ×2 (09:00→20:42)
[2016-09-20] MEDS: methylPREDNISolone SOD SUCC 125 MG/2 ML VIAL IV PUSH SCH (09:26)
[2016-09-20] MEDS: DOCUSATE SODIUM 100 MG CAP PO SCH ×2 (09:26→20:42)
[2016-09-20] MEDS: LISINOPRIL 20 MG TAB PO SCH ×2 (09:26→20:42)
[2016-09-20] MEDS: POLYETHYLENE GLYCOL 17 GM PKG PO SCH (09:26)
--- NOTE | 2016-09-20 10:16 | PD.PN.STU ---
Subjective Remarks Walked further with PT yesterday. Better ambulation with PT assistance and walker. Reports decreased paresthesias in both hands and right foot. Reports increase in numbness in right foot. Did have a normal BM yesterday. 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 Vital Signs Date Time Temp Pulse Resp B/P Pulse Ox O2 Delivery O2 Flow Rate FiO2 09/20/16 08:45 Room Air 09/20/16 07:52 98.1 80 18 138/83 98 09/20/16 04:00 Room Air 09/20/16 04:00 97.6 79 18 124/70 96 09/20/16 00:00 98.1 88 18 113/70 96 09/20/16 00:00 Room Air 09/19/16 20:00 97.8 103 18 123/60 95 09/19/16 20:00 Room Air 09/19/16 16:00 98.1 100 16 123/76 96 09/19/16 12:00 97.7 85 18 138/86 98 I/O 09/19/16 09/19/16 09/19/16 09/20/16 09/20/16 09/20/16 07:00 15:00 23:00 07:00 15:00 23:00 Intake Total 0 ml 960 ml 240 ml Output Total 500 ml Balance 0 ml 960 ml -260 ml Intake Oral 0 ml 960 ml 240 ml Output Urine Total 500 ml # Voids 1 2 1 # Bowel Movements 0 1 0 A/P Assessment and Plan (1) Guillain Lowe Syndrome Plan: Completed 09/07 IVIG Continuing improvement with steroid therapy Plasmapheresis if no improvement. Continue physical therapy. (2) Constipation Resolved with laxatives. Selwyn Ocasio September 20, 2016 10:16
[2016-09-20 12:00] VITALS: BP 117/66; PULSE 97; RESP 18; TEMP 98.3; O2SAT 97
[2016-09-20 16:00] VITALS: BP 128/84; PULSE 102; RESP 18; TEMP 98.1; O2SAT 96
[2016-09-20 20:00] VITALS: BP 147/86; PULSE 103; RESP 16; TEMP 97.7; O2SAT 96
[2016-09-20] MEDS: AMITRIPTYLINE HCL 75 MG TAB PO SCH (20:42)
--- NOTE | 2016-09-20 21:08 | HHI.PR ---
Subjective Remarks feeling stronger. less parasthesia Objective Vitals heart reg lung cta abd s/nt ext no edema Vital Signs Date Time Temp Pulse Resp B/P Pulse Ox O2 Delivery O2 Flow Rate FiO2 09/20/16 16:00 98.1 102 18 128/84 96 09/20/16 12:00 98.3 97 18 117/66 97 09/20/16 08:45 Room Air 09/20/16 07:52 98.1 80 18 138/83 98 09/20/16 04:00 Room Air 09/20/16 04:00 97.6 79 18 124/70 96 09/20/16 00:00 98.1 88 18 113/70 96 09/20/16 00:00 Room Air 09/19/16 09/19/16 09/20/16 15:00 23:00 07:00 Intake Total 960 ml 240 ml Output Total 500 ml Balance 960 ml -260 ml Intake Oral 960 ml 240 ml Output Urine Total 500 ml # Voids 2 1 # Bowel Movements 1 0 A/P Problem List: (1) Guillain Lowe syndrome Status: Acute Plan: Pt recently admitted with ascending paralysis, high prot in csf, areflexia lower ext's and dx of GBS She improved with ivig and sent to [place]. also had some autonomic instabilility and htn. constipated. 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 improving strength and parasthesia discussed with neurology tomorrow about dc and ?prednisone with f/u on 09/27 finished 09/07 ivig on solumedrol if no improvement then plasmapheresis laxatives. PT daily. progressing and pt will want to go home (2) HTN (hypertension) Status: Acute Plan: - Continue lisinopril and metoprolol Problem Qualifiers (1) HTN (hypertension): Qualified Code: I10 - Essential hypertension Drake Martinez MD September 20, 2016 21:08
[2016-09-21] VITALS: BP 126/78; PULSE 75; RESP 16; TEMP 98; O2SAT 96
[2016-09-21 04:00] VITALS: BP 121/72; PULSE 75; RESP 16; TEMP 97.3; O2SAT 96
[2016-09-21] MEDS: PREGABALIN 100 MG CAP PO SCH (05:21)
[2016-09-21 08:00] VITALS: BP 125/72; PULSE 77; RESP 16; TEMP 97.4; O2SAT 97
[2016-09-21] MEDS: POLYETHYLENE GLYCOL 17 GM PKG PO SCH (09:00)
[2016-09-21] MEDS: methylPREDNISolone SOD SUCC 125 MG/2 ML VIAL IV PUSH SCH (09:32)
[2016-09-21] MEDS: DOCUSATE SODIUM 100 MG CAP PO SCH (09:32)
[2016-09-21] MEDS: METOPROLOL TARTRATE 25 MG TAB PO SCH (09:32)
[2016-09-21] MEDS: LISINOPRIL 20 MG TAB PO SCH (09:32)
[2016-09-21] MEDS: SODIUM CHLORIDE 0.9% FLUSH 10 ML FLUSH IV FLUSH SCH (09:33)
--- NOTE | 2016-09-21 09:46 | PD.PN.STU ---
Subjective Remarks Feels better today. Reports improving paresthesias in bilateral hands and feet. 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 Vital Signs Date Time Temp Pulse Resp B/P Pulse Ox O2 Delivery O2 Flow Rate FiO2 09/21/16 08:00 97.4 77 16 125/72 97 09/21/16 04:00 Room Air 09/21/16 04:00 97.3 75 16 121/72 96 09/21/16 00:00 Room Air 09/21/16 00:00 98.0 75 16 126/78 96 09/20/16 20:00 97.7 103 16 147/86 96 09/20/16 20:00 Room Air 09/20/16 16:00 98.1 102 18 128/84 96 09/20/16 12:00 98.3 97 18 117/66 97 I/O 09/20/16 09/20/16 09/20/16 09/21/16 09/21/16 09/21/16 07:00 15:00 23:00 07:00 15:00 23:00 Intake Total 960 ml 480 ml 720 ml Balance 960 ml 480 ml 720 ml Intake Oral 960 ml 480 ml 720 ml # Voids 3 2 0 # Bowel Movements 1 0 0 A/P Assessment and Plan (1) Guillain Lowe Syndrome Plan: Completed 09/07 IVIG Continuing improvement with steroid therapy Plan on discharge home today Will prescribe prednisone f/u with neuro 09/27 (2) Constipation Resolved with laxatives. Selwyn Ocasio September 21, 2016 09:46
--- NOTE | 2016-09-21 11:48 | HHI.PR ---
Subjective Remarks stronger. less parasthesia. wants to go home Objective Vitals heart reg lung cta abd /snt ext no edema Vital Signs Date Time Temp Pulse Resp B/P Pulse Ox O2 Delivery O2 Flow Rate FiO2 09/21/16 08:00 97.4 77 16 125/72 97 09/21/16 07:00 97 Room Air 09/21/16 04:00 Room Air 09/21/16 04:00 97.3 75 16 121/72 96 09/21/16 00:00 Room Air 09/21/16 00:00 98.0 75 16 126/78 96 09/20/16 20:00 97.7 103 16 147/86 96 09/20/16 20:00 Room Air 09/20/16 16:00 98.1 102 18 128/84 96 09/20/16 12:00 98.3 97 18 117/66 97 09/20/16 09/20/16 09/21/16 15:00 23:00 07:00 Intake Total 960 ml 480 ml 720 ml Balance 960 ml 480 ml 720 ml Intake Oral 960 ml 480 ml 720 ml # Voids 3 2 0 # Bowel Movements 1 0 0 A/P Problem List: (1) Guillain Lowe syndrome Status: Acute Plan: Pt recently admitted with ascending paralysis, high prot in csf, areflexia lower ext's and dx of GBS She improved with ivig and sent to [place]. also had some autonomic instabilility and htn. constipated. 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 improving strength and parasthesia discussed with dr Lee..d/c home on prednisone 20mg and he will f/u on 09/27 and taper as per his instruction. f/u on 09/27 finished 09/07 ivig on solumedrol if no improvement then plasmapheresis laxatives. PT daily. progressing and pt will want to go home (2) HTN (hypertension) Status: Acute Plan: - Continue lisinopril and metoprolol Problem Qualifiers (1) HTN (hypertension): Qualified Code: I10 - Essential hypertension Drake Martinez MD September 21, 2016 11:48
[2016-09-21] MEDS ORDERED: PRED20 PO (11:50)
--- NOTE | 2016-09-21 11:50 | HHI.DCPOC ---
Discharge Care Plan Diagnosis: (1) Guillain Lowe syndrome Goals to Promote Your Health * To prevent worsening of your condition and complications * To maintain your health at the optimal level Directions to Meet Your Goals Take your medications as prescribed Follow your dietary instruction Follow activity as directed Keep your appointments as scheduled Take your immunizations and boosters as scheduled If your symptoms worsen call your PCP, if no PCP go to Urgent Care Center or Emergency Room Smoking is Dangerous to Your Health. Avoid second hand smoke Call the 24-hour hour crisis hotline for domestic abuse at Drake Martinez MD September 21, 2016 11:50
[2016-09-21 12:00] VITALS: BP 116/65; PULSE 78; RESP 16; TEMP 98.1; O2SAT 95
[2016-09-21] MEDS ORDERED: predniSONE 20 MG TAB PO ONE (12:00)
--- NOTE | 2016-10-05 15:59 | HHI.DS ---
Discharge Summary Admission Date September 14, 2016 at 17:43 Discharge Date: September 21, 2016 Admitting Diagnosis Guillain [place] (1) Guillain Lowe syndrome Diagnosis: [place] (2) HTN (hypertension) Diagnosis: Secondary Consultants Dr. Liliana Patel - Neurology Brief History Patient is a 45-year-old female previously hospitalized at [facility] . Patient was admitted with ascending lower extremity weakness and diagnosed by neurology with Guillain-Lowe. Patient was treated with IVIG for 5 days during that hospitalization with improvement. Patient was subsequently transferred to [facility]. Pt reports that after leaving [facility] she was able to ambulate in her home without using her walker at times, but she would steady herself with the wall. However, for the last week her lower extremity weakness has worsened again to the point where she cannot ambulate even using her walker. Case was discussed between the ER physician and neurology. Neurology requested admission for repeat IVIG treatment. Imaging Last Impressions Knee X-Ray 09/17/16 0000 Signed Impressions: Service Date/Time: Saturday, September 17, 2016 20:50 - CONCLUSION: Mild osteoarthritis without fracture. Jayy Yost MD Foot X-Ray 09/17/16 0000 Signed Impressions: Service Date/Time: Saturday, September 17, 2016 20:51 - CONCLUSION: No acute fracture. Jayy Yost MD Hospital Course Pt recently admitted from 08/17 - 08/22 with ascending paralysis, high protein in CSF, areflexia lower ext's and dx of GBS. She improved with IVIG and was sent to [facility]. She also had some autonomic instability and HTN. Pt presented back to the ED with similar sx's and at this point CIDP being questioned as a continuum of her GBS. Neurology was consulted at admission and they recommended IVIG daily for 5 days initially. At the completion of those 5 days pt was still having issues with weakness so she was then started on Solu-Medrol. She had improving strength and paraesthesia with the IV Solu-Medrol and Neurology recommended that the pt be discharged home on Prednisone 20mg daily and he wanted her to f/u as an outpt on 09/27 and would given instructions at that point regarding taper for the Prednisone. Pt to followup with Dr. Lee on 09/27/16 Pt Condition on Discharge: Stable Discharge Disposition: Discharge Home Discharge Instructions DIET: Follow Instructions for: As Tolerated, No Restrictions Activities you can perform: Regular-No Restrictions Follow up Referrals: Neurology - 09/27/16 with Franck Lee MD New Medications: Prednisone (Prednisone) 20 Mg Tab 20 MG PO DAILY GBS Days 10 Ref 0 TAB Continued Medications: Docusate Sodium (Dok) 100 Mg Cap 100 MG PO BID #14 Ref 1 CAP Lisinopril (Lisinopril) 5 Mg Tab 20 MG PO BID htn #60 Ref 1 TAB Metoprolol Tartrate (Metoprolol Tartrate) 25 Mg Tab 25 MG PO BID #60 Ref 1 TAB Pregabalin (Lyrica) 75 Mg Cap 75 MG PO Q8HR #90 Ref 1 CAP ([Amitriptyline]) 75 MG TAB 75 MG PO HS #30 Ref 1 TAB Idalmis Loera Oct 05, 2016 15:59
== END 2016-09-21 12:38 | disposition home or self-care (01) | DRG 95 ==
LOC: NEPC 16:13 → NEDA 17:43 → HIME 20:25 → N04A 09-15 17:33
PROVIDERS: ADMIT Hospitalist; ATTEND Hospitalist
PROC: 30233S1 Transfusion of Nonautologous Globulin into Peripheral Vein, Percutaneous Approach (ICD-10-PCS; principal; 2016-09-14)
DX: G61.0 Guillain-Barre syndrome (principal); G61.81 Chronic inflammatory demyelinating polyneuritis; I10 Essential (primary) hypertension; Z85.3 Personal history of malignant neoplasm of breast; Z92.3 Personal history of irradiation; Z92.21 Personal history of antineoplastic chemotherapy; K21.9 Gastro-esophageal reflux disease without esophagitis; K59.00 Constipation, unspecified; R29.6 Repeated falls; Z86.73 Personal history of transient ischemic attack (TIA), and cerebral infarction without residual deficits; Z90.13 Acquired absence of bilateral breasts and nipples
CPT/HCPCS: 73560; 73620; 80048; 80053; 81001; 85025; 87641; 99285; J1200; J1459; J2930; J7040; J7060; J7512